=== PATIENT | male | born 1990 | race Caucasian/White ===

== ENCOUNTER 2018-08-03 15:39 | Emergency (ER) | payer MEDICARE, MEDICAID ==
[2018-08-03] MEDS ORDERED: Sodium Chloride 0.9% 1,000 ML IV ONE (16:14)
[2018-08-03] MEDS ORDERED: HYDROmorphone 1 MG/ML Syringe IVPUSH ONE (16:14)
[2018-08-03] MEDS ORDERED: Ondansetron 4 MG/2 ML SDV IV ONE (16:14)
[2018-08-03] MEDS ORDERED: Sodium Chloride 0.9% 10 ML Syringe FLUSH PRN (16:14)
[2018-08-03] MEDS ORDERED: Iopamidol 612 MG/ML 100 ML Bottle IVPUSH ONE (16:17)
[2018-08-03 16:53] LABS: ANION GAP 13.7; CHLORIDE,CL 103 mmol/L (101-111); SODIUM,NA 138 mmol/L (135-145)
[2018-08-03] MEDS ORDERED: Dicyclomine 10 MG Cap PO ONE (17:48)
--- NOTE | 2018-08-03 17:50 | EDM.PDOC ---
"Scribed by Rashmi Villatoro 08/03/18 [id number] for Bar Loomis MD ED HPI GENERAL MEDICAL PROBLEM - General Chief Complaint: Abdominal Pain Stated Complaint: ABDOMINAL PAIN Time Seen by Provider: 08/03/18 16:07 Source of Information: Reports: Patient, RN, RN Notes Reviewed History Limitations: Reports: No Limitations - History of Present Illness INITIAL COMMENTS - FREE TEXT/NARRATIVE: Patient presents to ER by POV with complaint of onset of right lower quadrant this morning. He did have a runny bowel movement last night. He admits to chills and mild nausea. Denies fever, vomiting or radiating pain. HE denies any urinary symptoms. He believes the loose stool yesterday was due to dairy products because he is lactose intolerant. He has not had a bowel movement today. Onset: Today Duration: Getting Worse Location: Reports: Abdomen Quality: Reports: Ache Severity: Severe Improves with: Reports: None Worsens with: Reports: None Associated Symptoms: Reports: No Other Symptoms Right Lower Abdomen Pain Score (Numeric/FACES): 10 - Related Data Allergies Allergy/AdvReac Type Severity Reaction Status Date / Time No Known Allergies Allergy Verified 08/03/18 16:03 Home Meds: Home Meds Albuterol Sulfate [Proair Hfa] 2 puff IH Q4HR PRN 08/03/18 [History] Melatonin 10 mg PO BEDTIME 08/03/18 [History] Omeprazole 20 mg PO DAILY 08/03/18 [History] Tiotropium [Spiriva HandiHaler] 18 mcg INH DAILY 08/03/18 [History] Past Medical History Gastrointestinal History: Reports: Other (See Below) (lactose intolerant) Social & Family History - Family History Family Medical History: Noncontributory - Living Situation & Occupation Living situation: Reports: with Family Occupation: Employed ED ROS GENERAL - Review of Systems Review Of Systems: ROS reveals no pertinent complaints other than HPI. ED EXAM, GI/ABD - Physical Exam Exam: See Below Exam Limited By: No Limitations General Appearance: Alert, WD/WN, No Apparent Distress Eyes: Bilateral: Normal Appearance Ears: Normal External Exam, Normal Canal, Hearing Grossly Normal, Normal TMs Nose: Normal Inspection, Normal Mucosa, No Blood Throat/Mouth: Normal Inspection, Normal Lips, Normal Teeth, Normal Gums, Normal Oropharynx, Normal Voice, No Airway Compromise Head: Atraumatic, Normocephalic Neck: Normal Inspection, Supple, Non-Tender, Full Range of Motion Respiratory/Chest: No Respiratory Distress, Lungs Clear, Normal Breath Sounds, No Accessory Muscle Use, Chest Non-Tender Cardiovascular: Normal Peripheral Pulses, Regular Rate, Rhythm, No Edema, No Gallop, No JVD, No Murmur, No Rub GI/Abdominal Exam: Normal Bowel Sounds, Soft, No Organomegaly, No Distention, No Abnormal Bruit, Rebound (right lower quadrant), Tender (ROQ). No: Guarding, Rigid (Male) Exam: Deferred Rectal (Males) Exam: Deferred Back Exam: Normal Inspection, Full Range of Motion, NT Extremities: Normal Inspection, Normal Range of Motion, Non-Tender, Normal Capillary Refill, No Pedal Edema Neurological: Alert, Oriented, CN II-XII Intact, Normal Cognition, Normal Gait, Normal Reflexes, No Motor/Sensory Deficits Psychiatric: Normal Affect, Normal Mood Skin Exam: Warm, Dry, Intact, Normal Color, No Rash Course - Vital Signs Last Recorded V/S: Last Vital Signs Temp 37.1 C 08/03/18 16:09 Pulse 91 08/03/18 16:09 Resp 20 08/03/18 16:09 BP 152/91 H 08/03/18 16:09 Pulse Ox 99 08/03/18 16:09 - Orders/Labs/Meds Orders: Active Orders 24 hr Category Date Time Status Peripheral IV Care [RC] . DIRECTED Care 08/03/18 16:15 Active Abdomen Pelvis w Cont [CT] Stat Exams 08/03/18 16:17 Taken Dicyclomine [Bentyl] Med 08/03/18 17:48 Once 20 mg PO ONETIME ONE Sodium Chloride 0.9% [Saline Flush] Med 08/03/18 16:14 Active 10 ml FLUSH ASDIRECTED PRN Peripheral IV Insertion Adult [OM.PC] Stat Oth 08/03/18 16:14 Ordered Medication Orders Sodium Chloride (Saline Flush) 10 ml FLUSH ASDIRECTED PRN PRN Reason: Keep Vein Open Last Admin: 08/03/18 16:25 Dose: 10 ml Labs: Laboratory Tests 08/03/18 08/03/18 08/03/18 Range/Units 16:24 16:24 17:08 WBC 5.1 (5.0-10.0) 10^3/uL RBC 5.25 (4.6-6.2) 10^6/uL Hgb 14.7 (14.0-18.0) g/dL Hct 42.9 (40.0-54.0) % MCV 81.7 (80-100) fL MCH 28.0 (27.0-34.0) pg MCHC 34.3 (33.0-35.0) g/dL Plt Count 185 (150-450) 10^3/uL Neut % (Auto) 54.1 (42.2-75.2) % Lymph % (Auto) 31.4 (20.5-50.1) % [place] % (Auto) 10.8 H (2-8) % Eos % (Auto) 3.3 H (1.0-3.0) % Baso % (Auto) 0.4 (0.0-1.0) % Sodium 138 (135-145) mmol/L Potassium 3.7 (3.6-5.0) mmol/L Chloride 103 (101-111) mmol/L Carbon Dioxide 25.0 (21.0-31.0) mmol/L Anion Gap 13.7 BUN 12 (7-18) mg/dL Creatinine 1.0 (0.6-1.3) mg/dL Est Cr Clr Drug Dosing 116.09 mL/min Estimated GFR (MDRD) > 60 BUN/Creatinine Ratio 12.00 Glucose 105 (74-105) mg/dL Calcium 9.2 (8.4-10.2) mg/dl Total Bilirubin 1.0 (0.2-1.0) mg/dL AST 34 (10-42) IU/L ALT 41 (10-60) IU/L Alkaline Phosphatase 51 (42-121) IU/L Total Protein 7.8 (6.7-8.2) g/dl Albumin 4.7 (3.2-5.5) g/dl Globulin 3.1 Albumin/Globulin Ratio 1.52 Amylase 58 (28-100) U/L Lipase 31 (22-51) U/L Urine Color Yellow (YELLOW) Urine Appearance Cloudy (CLEAR) Urine pH 8.5 (5.0-9.0) Ur Specific [place] 1.015 (1.005-1.030) Urine Protein Negative (NEGATIVE) Urine Glucose (UA) Negative (NEGATIVE) Urine Ketones Negative (NEGATIVE) Urine Occult Blood Negative (NEGATIVE) Urine Nitrite Negative (NEGATIVE) Urine Bilirubin Negative (NEGATIVE) Urine Urobilinogen 1.0 (0.2-1.0) mg/dL Ur Leukocyte Esterase Negative (NEGATIVE) Meds: Medications Generic Name Dose Route Start Last Admin Trade Name Tatum PRN Reason Stop Dose Admin Sodium Chloride 10 ml 08/03/18 16:14 08/03/18 16:25 Saline Flush FLUSH 10 ml ASDIRECTED PRN Administration Keep Vein Open Discontinued Medications Generic Name Dose Route Start Last Admin Trade Name Tatum PRN Reason Stop Dose Admin Hydromorphone HCl 0.5 mg 08/03/18 16:14 08/03/18 16:22 Dilaudid IVPUSH 08/03/18 16:15 0.5 mg ONETIME ONE Administration Sodium Chloride 1,000 mls @ 999 mls/hr 08/03/18 16:14 08/03/18 16:25 Normal Saline IV 08/03/18 17:14 999 mls/hr .BOLUS ONE Administration Iopamidol 100 ml 08/03/18 16:17 08/03/18 16:38 Isovue-300 (61%) IVPUSH 08/03/18 16:18 100 ml ONETIME ONE Administration Ondansetron HCl 4 mg 08/03/18 16:14 08/03/18 16:22 Zofran IV 08/03/18 16:15 4 mg ONETIME ONE Administration - Radiology Interpretation Free Text/Narrative:: [facility] Final Radiology Report Call: [phone] assistance Online chat: [email or web address] Name: ONEL CALDERON Age: 28Years M Date: 08/03/2018 SSN: -- : [id number] Study: CT ABDOMEN/PELVIS W Requesting Physician: BAR LOOMIS Images: [id number] Addl Studies: Provided Clinical History: Contrast: With Contrast Medium: [id number] Contrast Amount: 100 mL Contrast Method: lac Page 1 of 2 EXAM: CT Abdomen and Pelvis With Contrast EXAM DATE/TIME: 08/03/2018 4:50 PM CLINICAL HISTORY: 28 years old, male; Signs and symptoms; Other: Rlq pain TECHNIQUE: Axial computed tomography images of the abdomen and pelvis with intravenous contrast. All CT scans at this facility use at least one of these dose optimization techniques: automated exposure control; mA and/or kV adjustment per patient size (includes targeted exams where dose is matched to clinical indication); or iterative reconstruction. Coronal and sagittal reformatted images were created and reviewed. CONTRAST: 100 ml of [id number] administered intravenously. COMPARISON: No relevant prior studies available. FINDINGS: Lower thorax: No acute findings. ABDOMEN: Liver: Normal. No mass. Gallbladder and bile ducts: Normal. No calcified stones. No ductal dilation. Pancreas: Normal. No ductal dilation. Spleen: Normal. No splenomegaly. ONEL CALDERON | Final Radiology Report CONFIDENTIALITY STATEMENT This report is intended only for use by the referring physician, and only in accordance with law. If you received this in error, call [phone]. Page 2 of 2 Adrenals: Normal. No mass. Kidneys and ureters: Right renal 1.9 cm cyst. Right intrarenal calculus without hydronephrosis. Left renal partially exophytic 7 mm cyst. Stomach and bowel: Normal. No obstruction. No mucosal thickening. Appendix: A normal appendix is identified. PELVIS: Bladder: Unremarkable as visualized. Reproductive: Unremarkable as visualized. ABDOMEN and PELVIS: Intraperitoneal space: Normal. No free air. No significant fluid collection. Bones/joints: No acute fracture. No dislocation. Soft tissues: Unremarkable. Vasculature: Normal. No abdominal aortic aneurysm. Lymph nodes: Normal. No enlarged lymph nodes. IMPRESSION: No evidence of acute abdominopelvic pathology. Right intrarenal calculus without hydronephrosis. Thank you for allowing us to participate in the care of your patient. Dictated and Authenticated by: Alexander Starkey MD 08/03/2018 5:23 PM Central Time ([place] & [place]) Departure - Departure Time of Disposition: 17:48 Disposition: Home, Self-Care 01 Condition: Good Clinical Impression: Colitis Abdominal pain Qualifiers: Abdominal location: right lower quadrant Qualified Code(s): R10.31 - Right lower quadrant pain - Discharge Information *PRESCRIPTION DRUG MONITORING PROGRAM REVIEWED*: Not Applicable *COPY OF PRESCRIPTION DRUG MONITORING REPORT IN PATIENT ERIKA: Not Applicable Instructions: Colitis, Abdominal Pain, Adult Forms: ED Department Discharge Additional Instructions: Rx: Dicyclomine 20mg *Do not drive while under the influence of this medication. [place] diet. Follow up in clinic if not improving in 2 to 3 days. - My Orders Last 24 Hours: My Active Orders 08/03/18 16:14 Sodium Chloride 0.9% [Saline Flush] 10 ml FLUSH ASDIRECTED PRN Peripheral IV Insertion Adult [OM.PC] Stat 08/03/18 16:15 Peripheral IV Care [RC] . DIRECTED 08/03/18 16:17 Abdomen Pelvis w Cont [CT] Stat 08/03/18 17:48 Dicyclomine [Bentyl] 20 mg PO ONETIME ONE - Assessment/Plan Last 24 Hours: My Active Orders 08/03/18 16:14 Sodium Chloride 0.9% [Saline Flush] 10 ml FLUSH ASDIRECTED PRN Peripheral IV Insertion Adult [OM.PC] Stat 08/03/18 16:15 Peripheral IV Care [RC] . DIRECTED 08/03/18 16:17 Abdomen Pelvis w Cont [CT] Stat 08/03/18 17:48 Dicyclomine [Bentyl] 20 mg PO ONETIME ONE I have read and agree with the documentation that has been completed regarding this visit. By signing this record, I attest that the documentation was completed in my physical presence and is an accurate record of the encounter."
== END 2018-08-03 18:03 | disposition home or self-care (01) ==
LOC: DL.ED 15:39
DX: K52.9 Noninfective gastroenteritis and colitis, unspecified (principal); N20.0 Calculus of kidney
CPT/HCPCS: 36415; 74177; 80053; 81003; 82150; 83690; 85025; 96361; 96374; 96375; 99284; A9270; J1170; J2405; J7030; Q9967

== ENCOUNTER 2018-09-22 00:40 | Emergency (ER) | payer MEDICARE, MEDICAID ==
[2018-09-22] MEDS ORDERED: GI Cocktail Oral Solution 30 ML PO ONE (01:03)
--- NOTE | 2018-09-22 01:04 | EDM.PDOC ---
ED HPI GENERAL MEDICAL PROBLEM - General Chief Complaint: Chest Pain Stated Complaint: SEVERE CHEST PAIN [id number] Time Seen by Provider: 09/22/18 01:03 Source of Information: Reports: Patient History Limitations: Reports: No Limitations - History of Present Illness INITIAL COMMENTS - FREE TEXT/NARRATIVE: c/o heartburn pain takes omeprazole + another new Rx but can't recall and is out of. ate double cheese with barron burger tonight and nfelt worse like hard to breath since he also has asthma. - Related Data Allergies Allergy/AdvReac Type Severity Reaction Status Date / Time No Known Allergies Allergy Verified 08/03/18 16:03 Home Meds: Home Meds Albuterol Sulfate [Proair Hfa] 2 puff IH Q4HR PRN 08/03/18 [History] Melatonin 10 mg PO BEDTIME 08/03/18 [History] Omeprazole 20 mg PO DAILY 08/03/18 [History] Tiotropium [Spiriva HandiHaler] 18 mcg INH DAILY 08/03/18 [History] Past Medical History - Past Health History Medical/Surgical History: Denies Medical/Surgical History Gastrointestinal History: Reports: Other (See Below) (lactose intolerant) Other Gastrointestinal History: Lactose intolerance Musculoskeletal History: Reports: Other (See Below) Other Musculoskeletal History: Had a staph infection to left heal Endocrine/Metabolic History: Reports: Other (See Below) Other Endocrine/Metabolic History: Patient states is "Pre-diabetic" - Past Surgical History HEENT Surgical History: Reports: LASIK Male Surgical History: Reports: Vasectomy Social & Family History - Family History Family Medical History: Noncontributory - Caffeine Use Caffeine Use: Reports: None - Living Situation & Occupation Living situation: Reports: with Family Occupation: Employed ED ROS GENERAL - Review of Systems Review Of Systems: ROS reveals no pertinent complaints other than HPI. ED EXAM, GENERAL - Physical Exam Exam: See Below Exam Limited By: No Limitations General Appearance: Alert, WD/WN, Anxious, Mild Distress, Other (discomfort) Ears: Hearing Grossly Normal Throat/Mouth: Normal Voice, No Airway Compromise Head: Atraumatic Neck: Non-Tender, Full Range of Motion Respiratory/Chest: No Respiratory Distress Cardiovascular: Regular Rate, Rhythm GI/Abdominal: Soft, Non-Tender Neurological: Alert, Oriented, Normal Cognition, Normal Gait, No Motor/Sensory Deficits Psychiatric: Anxious Skin Exam: Warm, Dry, Normal Color Lymphatic: No Adenopathy Course - Orders/Labs/Meds Orders: Active Orders 24 hr Category Date Time Status EKG 12 Lead [EKG Documentation Completion] [RC] STAT Care 09/22/18 00:43 Active Chest 1V Frontal [CR] Urgent Exams 09/22/18 00:43 Taken Labs: Laboratory Tests 09/22/18 09/22/18 Range/Units 00:55 00:55 WBC 6.0 (5.0-10.0) 10^3/uL RBC 5.00 (4.6-6.2) 10^6/uL Hgb 13.9 L (14.0-18.0) g/dL Hct 40.9 (40.0-54.0) % MCV 81.8 (80-100) fL MCH 27.8 (27.0-34.0) pg MCHC 34.0 (33.0-35.0) g/dL Plt Count 180 (150-450) 10^3/uL Neut % (Auto) 49.2 (42.2-75.2) % Lymph % (Auto) 37.3 (20.5-50.1) % [place] % (Auto) 10.0 H (2-8) % Eos % (Auto) 3.0 (1.0-3.0) % Baso % (Auto) 0.5 (0.0-1.0) % Sodium 139 (135-145) mmol/L Potassium 3.8 (3.6-5.0) mmol/L Chloride 104 (101-111) mmol/L Carbon Dioxide 25.0 (21.0-31.0) mmol/L Anion Gap 13.8 BUN 18 (7-18) mg/dL Creatinine 1.0 (0.6-1.3) mg/dL Est Cr Clr Drug Dosing TNP Estimated GFR (MDRD) > 60 BUN/Creatinine Ratio 18.00 Glucose 103 (74-105) mg/dL Calcium 9.3 (8.4-10.2) mg/dl Total Bilirubin 0.7 (0.2-1.0) mg/dL AST 28 (10-42) IU/L ALT 33 (10-60) IU/L Alkaline Phosphatase 52 (42-121) IU/L Troponin I < 0.02 (0.00-0.02) ng/ml Total Protein 7.5 (6.7-8.2) g/dl Albumin 4.5 (3.2-5.5) g/dl Globulin 3.0 Albumin/Globulin Ratio 1.50 Meds: Medications Discontinued Medications Generic Name Dose Route Start Last Admin Trade Name Tatum PRN Reason Stop Dose Admin Al Hydroxide/Mg Hydroxide 30 ml 09/22/18 01:03 09/22/18 01:34 Gi Cocktail PO 09/22/18 01:04 30 ml ONETIME ONE Administration - Re-Assessments/Exams Free Text/Narrative Re-Assessment/Exam: 09/22/18 01:41 results discussed wit pt who is better but not 100% yet. Departure - Departure Time of Disposition: 01:42 Disposition: Home, Self-Care 01 Condition: Good Clinical Impression: Gastroesophageal reflux disease Qualifiers: Esophagitis presence: with esophagitis Qualified Code(s): K21.0 - Gastro- esophageal reflux disease with esophagitis Instructions: Food Choices for Gastroesophageal Reflux Disease, Adult Forms: ED Department Discharge Additional Instructions: 1) avoid spicy and fatty foods 2) make sure to refill meds tomorrow 3) recheck as needed - My Orders Last 24 Hours: My Active Orders 09/22/18 00:43 EKG 12 Lead [EKG Documentation Completion] [RC] STAT Chest 1V Frontal [CR] Urgent - Assessment/Plan Last 24 Hours: My Active Orders 09/22/18 00:43 EKG 12 Lead [EKG Documentation Completion] [RC] STAT Chest 1V Frontal [CR] Urgent
[2018-09-22 01:23] LABS: ANION GAP 13.8; CHLORIDE,CL 104 mmol/L (101-111); SODIUM,NA 139 mmol/L (135-145)
[2018-09-22] MEDS ORDERED: Pantoprazole 40 MG Tab.CR PO ONE (01:41)
== END 2018-09-22 01:59 | disposition home or self-care (01) ==
LOC: DL.ED 00:40
DX: K21.0 Gastro-esophageal reflux disease with esophagitis (principal); Z79.899 Other long term (current) drug therapy
CPT/HCPCS: 36415; 71045; 80053; 84484; 85025; 93005; 99285; A9270

== ENCOUNTER 2018-11-24 05:25 | Emergency (ER) | payer MEDICARE, MEDICAID ==
--- NOTE | 2018-11-24 05:42 | EDM.PDOC ---
ED HPI GENERAL MEDICAL PROBLEM - General Chief Complaint: ENT Problem Stated Complaint: SICK AND TEMPERATURE [id number] Time Seen by Provider: 11/24/18 05:41 Source of Information: Reports: Patient History Limitations: Reports: No Limitations - History of Present Illness INITIAL COMMENTS - FREE TEXT/NARRATIVE: sore throat and fever since yesterday, worse tonight Throat Pain Score (Numeric/FACES): 10 - Related Data Allergies Allergy/AdvReac Type Severity Reaction Status Date / Time No Known Allergies Allergy Verified 08/03/18 16:03 Home Meds: Home Meds Albuterol Sulfate [Proair Hfa] 2 puff IH Q4HR PRN 08/03/18 [History] Melatonin 10 mg PO BEDTIME 08/03/18 [History] Omeprazole 20 mg PO DAILY 08/03/18 [History] Tiotropium [Spiriva HandiHaler] 18 mcg INH DAILY 08/03/18 [History] Past Medical History - Past Health History Medical/Surgical History: Denies Medical/Surgical History Cardiovascular History: Reports: None Respiratory History: Reports: Asthma Gastrointestinal History: Reports: GERD, Other (See Below) Other Gastrointestinal History: Lactose intolerance Musculoskeletal History: Reports: Other (See Below) Other Musculoskeletal History: Had a staph infection to left heal Neurological History: Reports: None Psychiatric History: Reports: None Endocrine/Metabolic History: Reports: Other (See Below) Other Endocrine/Metabolic History: Patient states is "Pre-diabetic" Hematologic History: Reports: None Immunologic History: Reports: None Oncologic (Cancer) History: Reports: None Dermatologic History: Reports: None - Infectious Disease History Infectious Disease History: Reports: None - Past Surgical History Head Surgeries/Procedures: Reports: None HEENT Surgical History: Reports: LASIK Male Surgical History: Reports: Vasectomy Musculoskeletal Surgical History: Reports: Other (See Below) Other Musculoskeletal Surgeries/Procedures:: left hand pointer finger reattached Social & Family History - Family History Family Medical History: Noncontributory - Tobacco Use Smoking Status *Q: Never Smoker Second Hand Smoke Exposure: No - Caffeine Use Caffeine Use: Reports: Coffee - Recreational Drug Use Recreational Drug Use: No - Living Situation & Occupation Living situation: Reports: with Family Occupation: Employed ED ROS ENT - Review of Systems Review Of Systems: ROS reveals no pertinent complaints other than HPI. ED EXAM, ENT - Physical Exam Exam: See Below Exam Limited By: No Limitations General Appearance: Alert, WD/WN, Mild Distress, Other (discomfort) Ears: Hearing Grossly Normal Mouth/Throat: Pharyngeal Erythema, Tonsillar Erythema, Tonsillar Swelling Head: Atraumatic Neck: Non-Tender, Full Range of Motion Respiratory/Chest: No Respiratory Distress Cardiovascular: Regular Rate, Rhythm GI/Abdominal: Soft, Non-Tender Neurological: Alert, Oriented, Normal Cognition, Normal Gait, No Motor/Sensory Deficits Psychiatric: Flat Affect Skin: Warm, Dry, Normal Color Lymphatic: No Adenopathy Course - Vital Signs Last Recorded V/S: Last Vital Signs Temp 37.2 C 11/24/18 05:30 Pulse 100 11/24/18 05:30 Resp 18 11/24/18 05:30 BP 146/85 H 11/24/18 05:30 Pulse Ox 99 11/24/18 05:30 - Orders/Labs/Meds Meds: Medications Discontinued Medications Generic Name Dose Route Start Last Admin Trade Name Freq PRN Reason Stop Dose Admin Penicillin G Procaine/Benzathine 1.2 millunits 11/24/18 06:00 Bicillin C-R 600/600 IM 11/24/18 06:01 ONETIME ONE - Re-Assessments/Exams Free Text/Narrative Re-Assessment/Exam: 11/24/18 06:02 results discussed with pt Departure - Departure Time of Disposition: 06:02 Disposition: Home, Self-Care 01 Condition: Good Clinical Impression: Streptococcal tonsillopharyngitis - Discharge Information Instructions: Strep Throat, [id number] Forms: ED Department Discharge Additional Instructions: 1) avoid solid foods next 3 to 4 days 2) take tylenol or motrin for fever 3) follow up at clinic rx given; el-francisca
[2018-11-24] MEDS ORDERED: Penicillin G Benzathine/Procaine 600-600 1.2 Millunits/2 ML Syringe IM ONE (06:00)
== END 2018-11-24 06:18 | disposition home or self-care (01) ==
LOC: DL.ED 05:25
DX: J03.00 Acute streptococcal tonsillitis, unspecified (principal); K21.9 Gastro-esophageal reflux disease without esophagitis; Z79.899 Other long term (current) drug therapy
CPT/HCPCS: 87430; 96372; 99283; J0558

== ENCOUNTER 2019-02-28 22:53 | Emergency (ER) | payer MEDICARE, MEDICAID ==
[2019-02-28] MEDS ORDERED: Ketorolac 30 MG/ML SDV IM ONE (23:24)
--- NOTE | 2019-02-28 23:31 | EDM.PDOC ---
ED HPI GENERAL MEDICAL PROBLEM - General Chief Complaint: General Stated Complaint: IN PAIN, BONE SPURS? Time Seen by Provider: 02/28/19 23:20 Source of Information: Reports: Patient History Limitations: Reports: No Limitations - History of Present Illness INITIAL COMMENTS - FREE TEXT/NARRATIVE: This 28 yo male patient reports to the ED with increased pain in his left heel. The patient reports he has bone spurs and an appointment with podiatry on , but has had increased pain. The patient was seen in the clinic in the past week and advised to take Tylenol and ibuprofen. The patient reports he took Tylenol today, but has not take any ibuprofen. Onset: Gradual Duration: Day(s):, Getting Worse Location: Reports: Lower Extremity, Left Quality: Reports: Ache, Throbbing Severity: Moderate Improves with: Reports: Rest Worsens with: Reports: Movement Context: Reports: Other Associated Symptoms: Reports: No Other Symptoms - Related Data Allergies Allergy/AdvReac Type Severity Reaction Status Date / Time No Known Allergies Allergy Verified 02/28/19 22:59 Home Meds: Home Meds Albuterol Sulfate [Proair Hfa] 2 puff IH Q4HR PRN 08/03/18 [History] Melatonin 10 mg PO BEDTIME 08/03/18 [History] Omeprazole 20 mg PO DAILY 08/03/18 [History] Tiotropium [Spiriva HandiHaler] 18 mcg INH DAILY 08/03/18 [History] Past Medical History - Past Health History Medical/Surgical History: Denies Medical/Surgical History Cardiovascular History: Reports: None Respiratory History: Reports: Asthma Gastrointestinal History: Reports: GERD, Other (See Below) Other Gastrointestinal History: Lactose intolerance Musculoskeletal History: Reports: Other (See Below) Other Musculoskeletal History: Had a staph infection to left heal Neurological History: Reports: None Psychiatric History: Reports: None Endocrine/Metabolic History: Reports: Other (See Below) Other Endocrine/Metabolic History: Patient states is "Pre-diabetic" Hematologic History: Reports: None Immunologic History: Reports: None Oncologic (Cancer) History: Reports: None Dermatologic History: Reports: None - Infectious Disease History Infectious Disease History: Reports: None - Past Surgical History Head Surgeries/Procedures: Reports: None HEENT Surgical History: Reports: LASIK Male Surgical History: Reports: Vasectomy Musculoskeletal Surgical History: Reports: Other (See Below) Other Musculoskeletal Surgeries/Procedures:: left hand pointer finger reattached Social & Family History - Family History Family Medical History: Noncontributory - Tobacco Use Smoking Status *Q: Never Smoker Second Hand Smoke Exposure: No - Caffeine Use Caffeine Use: Reports: Soda - Recreational Drug Use Recreational Drug Use: No - Living Situation & Occupation Living situation: Reports: with Family Occupation: Employed ED ROS GENERAL - Review of Systems Review Of Systems: ROS reveals no pertinent complaints other than HPI. ED EXAM, GENERAL - Physical Exam Exam: See Below Exam Limited By: No Limitations General Appearance: Alert, WD/WN, Mild Distress Eye Exam: Bilateral Eye: EOMI, Normal Inspection, PERRL Ears: Normal External Exam, Normal Canal, Hearing Grossly Normal, Normal TMs Nose: Normal Inspection, Normal Mucosa, No Blood Throat/Mouth: Normal Inspection, Normal Lips, Normal Teeth, Normal Gums, Normal Oropharynx, Normal Voice, No Airway Compromise Head: Atraumatic, Normocephalic Neck: Normal Inspection, Supple, Non-Tender, Full Range of Motion Respiratory/Chest: No Respiratory Distress, Lungs Clear, Normal Breath Sounds, No Accessory Muscle Use, Chest Non-Tender Cardiovascular: Normal Peripheral Pulses, Regular Rate, Rhythm, No Edema, No Gallop, No JVD, No Murmur, No Rub GI/Abdominal: Normal Bowel Sounds, Soft, Non-Tender, No Organomegaly, No Distention, No Abnormal Bruit, No Mass (Male) Exam: Deferred Rectal (Males) Exam: Deferred Back Exam: Normal Inspection, Full Range of Motion, NT Extremities: Normal Range of Motion, No Pedal Edema, Normal Capillary Refill, Leg Pain (left heel pain with pressure) Neurological: Alert, Oriented, CN II-XII Intact Psychiatric: Normal Affect, Normal Mood Skin Exam: Warm, Dry, Intact, Normal Color, No Rash Lymphatic: No Adenopathy Course - Vital Signs Last Recorded V/S: Last Vital Signs Temp 36.6 C 02/28/19 23:00 Pulse 96 02/28/19 23:00 Resp 18 02/28/19 23:00 BP 168/96 H 02/28/19 23:00 Pulse Ox 100 02/28/19 23:00 - Orders/Labs/Meds Orders: Active Orders 24 hr Category Date Time Status Ketorolac [Toradol] Med 02/28/19 23:24 Once 30 mg IM ONETIME ONE Departure - Departure Time of Disposition: 23:28 Disposition: Home, Self-Care 01 Condition: Fair Clinical Impression: Inflammatory pain of left heel - Discharge Information *PRESCRIPTION DRUG MONITORING PROGRAM REVIEWED*: Not Applicable *COPY OF PRESCRIPTION DRUG MONITORING REPORT IN PATIENT ERIKA: Not Applicable Instructions: Heel Spur Care Plan Goals: The patient was advised of the examination results during the visit. The patient was given an injection of Toradol while in the ED. The patient was discharged with a script for Toradol (10 mg) #20 to take 1 by mouth every 6 hours. The patient should follow-up with his primary care facility for continued evaluation and management. The patient was also encouraged to ice the area often. If the patient has any additional symptoms or concerns, the patient should either return to the emergency department or visit his primary care facility. - My Orders Last 24 Hours: My Active Orders 02/28/19 23:24 Ketorolac [Toradol] 30 mg IM ONETIME ONE - Assessment/Plan Last 24 Hours: My Active Orders 02/28/19 23:24 Ketorolac [Toradol] 30 mg IM ONETIME ONE
== END 2019-02-28 23:38 | disposition home or self-care (01) ==
LOC: DL.ED 22:53
DX: M79.672 Pain in left foot (principal); J45.909 Unspecified asthma, uncomplicated; K21.9 Gastro-esophageal reflux disease without esophagitis; Z79.899 Other long term (current) drug therapy
CPT/HCPCS: 96372; 99283; J1885

== ENCOUNTER 2019-03-19 07:03 | Day surgery (SDC) | payer MEDICARE, MEDICAID ==
[~2019-03-19 07:03] MED LIST: Lactated Ringers 1,000 ML IV SCH; Sodium Chloride 0.9% 10 ML Syringe FLUSH PRN
[2019-03-19] MEDS ORDERED: Bupivacaine 0.5% 30 ML SDV INJECT ONE ×4 (07:04→09:50)
[2019-03-19] MEDS ORDERED: Dexamethasone 4 MG/ML SDV IV ONE (07:04)
[2019-03-19] MEDS ORDERED: fentaNYL 100 MCG/2 ML SDV IV ONE (07:04)
[2019-03-19] MEDS ORDERED: Propofol 200 MG/20 ML SDV IV ONE (07:04)
[2019-03-19] MEDS ORDERED: Ondansetron 4 MG/2 ML SDV IV ONE (07:04)
[2019-03-19] MEDS ORDERED: Lidocaine 1% 30 ML SDV INJECT ONE ×4 (07:04→09:50)
[2019-03-19] MEDS ORDERED: Midazolam 1 MG/ML 2 ML SDV IV ONE (07:04)
[2019-03-19] MEDS ORDERED: Bupivacaine 0.5% 30 ML SDV ONE (08:03)
[2019-03-19] MEDS ORDERED: Lidocaine 1% 30 ML SDV ONE (08:03)
[2019-03-19] MEDS ORDERED: ceFAZolin 2 GM in Premix Bag 1 BAG IV ONE (09:00)
[2019-03-19] MEDS ORDERED: Acetaminophen/oxyCODONE 325-5 MG Tab PO PRN (09:58)
--- NOTE | 2019-03-19 10:01 | PCM.OPNOTE ---
- General Post-Op/Procedure Note Date of Surgery/Procedure: 03/19/19 Operative Procedure(s): left foot calcaneal exostectomy Pre Op Diagnosis: left foot calcaneus exostosis Post-Op Diagnosis: daya Anesthesia Technique: Local, MAC Primary Surgeon: Analisa Gutierrez Anesthesia Provider: Sudheer Park Pathology: left foot bone spur EBL in mLs: 10 Complications: none Condition: Good Free Text/Narrative:: Intake & Output 03/18/19 03/19/19 03/19/19 22:59 06:59 14:59 Intake Total 50 Balance 50 Pt tolerated procedure well and was transported to recovery with vascular status intact to left foot. Well padded compression dressing applied with cam boot.
--- NOTE | 2019-03-20 12:31 | OR ---
DATE: 03/19/2019 PREOPERATIVE DIAGNOSIS: Left foot calcaneal exostosis. POSTOPERATIVE DIAGNOSIS: Left foot calcaneal exostosis. PROCEDURE PERFORMED: Left foot calcaneal exostectomy. ANESTHESIA: Local MAC with preoperative local block of 10 mL of 1:1 mixture of 1% lidocaine plain and 0.5% Marcaine plain. TOURNIQUET TIME: 50 minutes, pneumatic ankle tourniquet. ESTIMATED BLOOD LOSS: Minimal. SPECIMEN REMOVED: Left foot bone spur. COMPLICATIONS: None. INDICATIONS: Parvin is a 28-year-old male who presents for left foot heel pain. This has been bothering him now to the point where he cannot even walk on the foot. He did see his primary care who got x-rays and told them he has a large bone spur underneath the heel bone. He does have history of infection in that foot when he was a child, where they had to put him in the hospital for IV antibiotics and do a surgery on that area of the foot. He has tried cushions in his shoes with no relief. He does work on hard floors all day at [employer]. X-rays reveal left foot large exostosis at the plantar medial aspect of the calcaneus. The patient voiced good understanding of the proposed procedure and possible complications and elects to have surgery at this time. DESCRIPTION OF PROCEDURE: The patient was taken to the operating room lying in a supine position. After adequate anesthesia induction as described above, the left foot was prepped and draped in the usual sterile fashion. A pneumatic ankle tourniquet was inflated to 225 mmHg. Attention was then directed to the medial aspect of the left foot calcaneal area where an approximately 4 cm linear incision was made just dorsal to the plantar fat pad of the calcaneus. This was right overlying the bony prominence. Sharp and blunt dissection was performed down to the level of the large bony exostosis. A sagittal saw was used to make a bone cut through the bone spur, a curette was also used to help free the area and the bone spur was completely removed, this was sent to pathology. A bone rasp was used to smoothen all rough edges. Fluoroscopy was used to ensure all bone spur was removed. This was also palpated, and there were no longer any sharp bony prominences in the area. The area was then irrigated with copious amounts of sterile saline. Deep closure was completed with 3-0 Vicryl. Skin closure was completed with 4-0 nylon. The area was dressed with Xeroform to the incision site, fluffs, Webril, and an Adi wrap. He was placed non- weightbearing. The patient tolerated the procedure well and left the operating room for recovery with vascular status intact to the left foot as noted by immediate hyperemia to all digits upon deflation of the ankle tourniquet. The patient was then discharged home once he met hospital discharge requirements. [facility] /[id number]
== END 2019-03-19 12:45 | disposition home or self-care (01) ==
LOC: DL.SDS 07:03
PROVIDERS: ATTEND Podiatrist
DX: M89.8X7 Other specified disorders of bone, ankle and foot (principal); K21.9 Gastro-esophageal reflux disease without esophagitis; J45.909 Unspecified asthma, uncomplicated; F41.9 Anxiety disorder, unspecified; F32.9 Major depressive disorder, single episode, unspecified; Z91.09 Other allergy status, other than to drugs and biological substances; Z79.899 Other long term (current) drug therapy
CPT/HCPCS: 01480; 28120; 82962; A9270; J0690; J1100; J2001; J2250; J2405; J2704; J3010; J3490; J7120

== ENCOUNTER 2019-03-22 16:34 | Emergency (ER) | payer MEDICARE, MEDICAID ==
--- NOTE | 2019-03-22 18:35 | EDM.PDOC ---
ED HPI GENERAL MEDICAL PROBLEM - General Chief Complaint: Lower Extremity Injury/Pain Stated Complaint: DIZZY SPELLS Time Seen by Provider: 03/22/19 18:00 Source of Information: Reports: Patient, RN, RN Notes Reviewed History Limitations: Reports: No Limitations - History of Present Illness INITIAL COMMENTS - FREE TEXT/NARRATIVE: Patient is a 28-year-old male who has had 2 days of dizziness and on oxycodone. He took one this a.m. for left lateral ankle pain. He fell off crutches with no injury. No numbness of left foot. He has had increased pain in to it and has not taken any pain med cine this a.m. He has history of staph infection with last surgery on that same heel. Onset: Today Duration: Getting Worse Location: Reports: Lower Extremity, Left Quality: Reports: Ache Severity: Moderate Improves with: Reports: None Worsens with: Reports: None Associated Symptoms: Reports: No Other Symptoms Left Lower Ankle Pain Score (Numeric/FACES): 10 - Related Data Allergies Allergy/AdvReac Type Severity Reaction Status Date / Time environmental Allergy Hives Uncoded 03/19/19 07:11 Home Meds: Home Meds Albuterol Sulfate [Proair Hfa] 2 puff IH Q4HR PRN 08/03/18 [History] Melatonin 10 mg PO BEDTIME PRN 08/03/18 [History] Omeprazole 20 mg PO DAILY 08/03/18 [History] Tiotropium [Spiriva HandiHaler] 18 mcg INH DAILY 08/03/18 [History] Azelastine HCl [Azelastine] 1 drop EYEBOTH BID 03/17/19 [History] Cetirizine [ZyrTEC] 10 mg PO DAILY 03/17/19 [History] DULoxetine [Cymbalta] 60 mg PO DAILY 03/17/19 [History] Fluticasone/Vilanterol [Breo Ellipta 100-25 MCG Inhalation Kit] 1 puff INH DAILY 03/17/19 [History] Ranitidine [Zantac] 150 mg PO DAILY 03/17/19 [History] Past Medical History - Past Health History Medical/Surgical History: Denies Medical/Surgical History HEENT History: Reports: Impaired Vision Cardiovascular History: Reports: None Respiratory History: Reports: Asthma Gastrointestinal History: Reports: GERD, Other (See Below) Other Gastrointestinal History: Lactose intolerance Genitourinary History: Reports: None Musculoskeletal History: Reports: Other (See Below) Other Musculoskeletal History: Had a staph infection to left heal Neurological History: Reports: None Psychiatric History: Reports: None, Anxiety, Depression Endocrine/Metabolic History: Reports: Other (See Below) Other Endocrine/Metabolic History: Patient states is "Pre-diabetic" Hematologic History: Reports: None Immunologic History: Reports: None Oncologic (Cancer) History: Reports: None Dermatologic History: Reports: None - Infectious Disease History Infectious Disease History: Reports: Chicken Pox - Past Surgical History Head Surgeries/Procedures: Reports: None HEENT Surgical History: Reports: LASIK Cardiovascular Surgical History: Reports: None Respiratory Surgical History: Reports: None GI Surgical History: Reports: Colonoscopy Male Surgical History: Reports: Vasectomy Musculoskeletal Surgical History: Reports: Shoulder Surgery, Other (See Below) Other Musculoskeletal Surgeries/Procedures:: left hand pointer finger reattached. Left calcaneal osteotomy Oncologic Surgical History: Reports: None Social & Family History - Family History Family Medical History: Noncontributory - Tobacco Use Smoking Status *Q: Never Smoker - Caffeine Use Caffeine Use: Reports: Soda - Recreational Drug Use Recreational Drug Use: No - Living Situation & Occupation Living situation: Reports: with Family Occupation: Employed Review of Systems - Review of Systems Review Of Systems: ROS reveals no pertinent complaints other than HPI. ED EXAM, GENERAL - Physical Exam Exam: See Below Exam Limited By: No Limitations General Appearance: Alert, WD/WN, No Apparent Distress Respiratory/Chest: No Respiratory Distress, Lungs Clear, Normal Breath Sounds, No Accessory Muscle Use, Chest Non-Tender Cardiovascular: Normal Peripheral Pulses, Regular Rate, Rhythm, No Edema, No Gallop, No JVD, No Murmur, No Rub Peripheral Pulses: 3+: Dorsalis Pedis (L), Dorsalis Pedis (R) Extremities: Other (wiggles toes on left with no red or warmth of the left toes or distal tib/fib. Removed evangelina wrap on left foot and small dry dark old red drainage approximatley 2 cm on heel. ) Neurological: Alert Psychiatric: Normal Affect, Normal Mood Skin Exam: Warm, Dry, Intact, Normal Color, No Rash Course - Vital Signs Last Recorded V/S: Last Vital Signs Temp 36.8 C 03/22/19 17:29 Pulse 97 03/22/19 17:29 Resp 16 03/22/19 17:29 BP 140/98 H 03/22/19 17:29 Pulse Ox 99 03/22/19 17:29 Departure - Departure Time of Disposition: 18:31 Disposition: Home, Self-Care 01 Condition: Good Clinical Impression: Status post osteotomy, Dizzy spells - Discharge Information *PRESCRIPTION DRUG MONITORING PROGRAM REVIEWED*: Not Applicable *COPY OF PRESCRIPTION DRUG MONITORING REPORT IN PATIENT ERIKA: Not Applicable Instructions: Dizziness, [id number] Forms: ED Department Discharge Additional Instructions: Only use 1 oxycodone at a time. Increase fluids. See your precipitator supervisor tomorrow. I do think your dizzy spells are related to your oxycodone. I would also use aspirin or ibuprofen (what ever your precipitator supervisor had instructed you to do) with 1 oxycodone.
== END 2019-03-22 18:45 | disposition home or self-care (01) ==
LOC: DL.ED 16:34
DX: R42 Dizziness and giddiness (principal); J45.909 Unspecified asthma, uncomplicated; K21.9 Gastro-esophageal reflux disease without esophagitis; F41.9 Anxiety disorder, unspecified; F32.9 Major depressive disorder, single episode, unspecified; Z98.890 Other specified postprocedural states; Z91.09 Other allergy status, other than to drugs and biological substances; Z79.899 Other long term (current) drug therapy
CPT/HCPCS: 99283

== ENCOUNTER 2019-05-31 15:26 | Emergency (ER) | payer OTHER, MEDICARE ==
--- NOTE | 2019-05-31 15:56 | EDM.PDOC ---
ED HPI GENERAL MEDICAL PROBLEM - General Chief Complaint: Wound Recheck Stated Complaint: WC LIQUOR BOTTLES CUT Time Seen by Provider: 05/31/19 15:40 Source of Information: Reports: Patient History Limitations: Reports: No Limitations - History of Present Illness INITIAL COMMENTS - FREE TEXT/NARRATIVE: This 29 yo male patient reports to the ED after having several liquor bottles dropped off a shelf on him as he was working at [employer]. The patient reports the incident happened at 1330 today. The patient has small superficial lacerations to his left hand (4th and 5th fingers) and right forearm. The patient reports he also has pain in his right knee due to one of the bottles falling on his right knee. Onset: Today Onset Date: 05/31/19 Onset Time: 13:30 Duration: Constant Location: Reports: Upper Extremity, Left, Upper Extremity, Right, Lower Extremity, Right Quality: Reports: Other Severity: Mild Improves with: Reports: None Worsens with: Reports: None Context: Reports: Other Associated Symptoms: Reports: No Other Symptoms Right Knee Pain Score (Numeric/FACES): 10 - Related Data Allergies Allergy/AdvReac Type Severity Reaction Status Date / Time environmental Allergy Hives Uncoded 05/31/19 15:37 Home Meds: Home Meds Albuterol Sulfate [Proair Hfa] 2 puff IH Q4HR PRN 08/03/18 [History] Melatonin 10 mg PO BEDTIME PRN 08/03/18 [History] Omeprazole 20 mg PO DAILY 08/03/18 [History] Tiotropium [Spiriva HandiHaler] 18 mcg INH DAILY 08/03/18 [History] Azelastine HCl [Azelastine] 1 drop EYEBOTH BID 03/17/19 [History] Cetirizine [ZyrTEC] 10 mg PO DAILY 03/17/19 [History] DULoxetine [Cymbalta] 60 mg PO DAILY 03/17/19 [History] Fluticasone/Vilanterol [Breo Ellipta 100-25 MCG Inhalation Kit] 1 puff INH DAILY 03/17/19 [History] Ranitidine [Zantac] 150 mg PO DAILY 03/17/19 [History] Past Medical History - Past Health History Medical/Surgical History: Denies Medical/Surgical History HEENT History: Reports: Impaired Vision Cardiovascular History: Reports: None Respiratory History: Reports: Asthma Gastrointestinal History: Reports: GERD, Other (See Below) Other Gastrointestinal History: Lactose intolerance Genitourinary History: Reports: None Musculoskeletal History: Reports: Other (See Below) Other Musculoskeletal History: Had a staph infection to left heal Neurological History: Reports: None Psychiatric History: Reports: None, Anxiety, Depression Endocrine/Metabolic History: Reports: Other (See Below) Other Endocrine/Metabolic History: Patient states is "Pre-diabetic" Hematologic History: Reports: None Immunologic History: Reports: None Oncologic (Cancer) History: Reports: None Dermatologic History: Reports: None - Infectious Disease History Infectious Disease History: Reports: Chicken Pox - Past Surgical History Head Surgeries/Procedures: Reports: None HEENT Surgical History: Reports: LASIK Cardiovascular Surgical History: Reports: None Respiratory Surgical History: Reports: None GI Surgical History: Reports: Colonoscopy Male Surgical History: Reports: Vasectomy Musculoskeletal Surgical History: Reports: Shoulder Surgery, Other (See Below) Other Musculoskeletal Surgeries/Procedures:: left hand pointer finger reattached. Left calcaneal osteotomy Oncologic Surgical History: Reports: None Social & Family History - Family History Family Medical History: Noncontributory - Tobacco Use Smoking Status *Q: Never Smoker Second Hand Smoke Exposure: No - Caffeine Use Caffeine Use: Reports: Soda - Recreational Drug Use Recreational Drug Use: No - Living Situation & Occupation Living situation: Reports: with Family Occupation: Employed ED ROS GENERAL - Review of Systems Review Of Systems: Comprehensive ROS is negative, except as noted in HPI. ED EXAM, SKIN/RASH Exam: See Below Exam Limited By: No Limitations General Appearance: Alert, WD/WN, Mild Distress Eye Exam: Bilateral Eye: EOMI, Normal Inspection, PERRL Ears: Normal External Exam, Normal Canal, Hearing Grossly Normal, Normal TMs Nose: Normal Inspection, Normal Mucosa, No Blood Throat/Mouth: Normal Inspection, Normal Lips, Normal Teeth, Normal Gums, Normal Oropharynx, Normal Voice, No Airway Compromise Head: Atraumatic, Normocephalic Neck: Normal Inspection, Supple, Non-Tender, Full Range of Motion Respiratory/Chest: No Respiratory Distress, Lungs Clear, Normal Breath Sounds, No Accessory Muscle Use, Chest Non-Tender Cardiovascular: Normal Peripheral Pulses, Regular Rate, Rhythm, No Edema, No Gallop, No JVD, No Murmur, No Rub GI/Abdominal: Normal Bowel Sounds, Soft, Non-Tender, No Organomegaly, No Distention, No Abnormal Bruit, No Mass (Male) Exam: Deferred Rectal (Males) Exam: Deferred Back Exam: Normal Inspection, Full Range of Motion, NT Extremities: Leg Pain (right knee (no evidence of bruise), no break in skin related to injury area) Neurological: Alert, Oriented, CN II-XII Intact, Normal Cognition, Normal Gait, Normal Reflexes, No Motor/Sensory Deficits Psychiatric: Normal Affect, Normal Mood Skin: Warm, Dry, Normal Color, No Rash, Wound/Incision (small superficial lacerations to the patient's left 4th and 5th fingers, small superficial laceration to patient's right forarm.) Location, Skin: Upper Extremity, Right, Upper Extremity, Left, Lower Extremity, Right (no evidence of injury to the patient's right knee (no contusion and no broken skin). ) Lymphatic: No Adenopathy Course - Vital Signs Last Recorded V/S: Last Vital Signs Temp 36.5 C 05/31/19 15:30 Pulse 96 05/31/19 15:30 Resp 18 05/31/19 15:30 BP 146/87 H 05/31/19 15:30 Pulse Ox 100 05/31/19 15:30 - Orders/Labs/Meds Orders: Active Orders 24 hr Category Date Time Status Vaccines to be Administered [RC] PER UNIT ROUTINE Care 05/31/19 15:47 Ordered Diphth,Pertuss(Acell),Tet Vac [Adacel] Med 05/31/19 15:47 Once 0.5 ml IM .ONCE ONE Medication Orders Diphtheria/Tetanus/Acell Pertussis (Adacel) 0.5 ml IM .ONCE ONE Stop: 05/31/19 15:48 Meds: Medications Generic Name Dose Route Start Last Admin Trade Name Freq PRN Reason Stop Dose Admin Diphtheria/Tetanus/Acell Pertussis 0.5 ml 05/31/19 15:47 Adacel IM 05/31/19 15:48 .ONCE ONE Departure - Departure Time of Disposition: 16:00 Disposition: Home, Self-Care 01 Condition: Good Clinical Impression: Superficial laceration of left hand Qualifiers: Encounter type: initial encounter Qualified Code(s): S61.412A - Laceration without foreign body of left hand, initial encounter Superficial injury of right forearm Qualifiers: Encounter type: initial encounter Qualified Code(s): S50.911A - Unspecified superficial injury of right forearm, initial encounter Right knee pain Qualifiers: Chronicity: acute Qualified Code(s): M25.561 - Pain in right knee - Discharge Information *PRESCRIPTION DRUG MONITORING PROGRAM REVIEWED*: Not Applicable *COPY OF PRESCRIPTION DRUG MONITORING REPORT IN PATIENT ERIKA: Not Applicable Care Plan Goals: The patient was advised of the examination during the visit. The patient's hand wounds were cleaned with no additional bleeding. The patient was encouraged to continue with his normal activities. If the patient has any additional symptoms or concerns, the patient should either return to the emergency department or visit his primary care facility. - My Orders Last 24 Hours: My Active Orders 05/31/19 15:47 Vaccines to be Administered [RC] PER UNIT ROUTINE Diphth,Pertuss(Acell),Tet Vac [Adacel] 0.5 ml IM .ONCE ONE - Assessment/Plan Last 24 Hours: My Active Orders 05/31/19 15:47 Vaccines to be Administered [RC] PER UNIT ROUTINE Diphth,Pertuss(Acell),Tet Vac [Adacel] 0.5 ml IM .ONCE ONE
[2019-05-31] MEDS: Diphtheria,Pertussis(Acell),Tetanus Vaccine 0.5 ML SDV IM ONE (15:59)
== END 2019-05-31 16:10 | disposition home or self-care (01) ==
LOC: DL.ED 15:26
DX: S61.215A Laceration without foreign body of left ring finger without damage to nail, initial encounter (principal); S61.217A Laceration without foreign body of left little finger without damage to nail, initial encounter; S51.811A Laceration without foreign body of right forearm, initial encounter; M25.561 Pain in right knee; Z23 Encounter for immunization; K21.9 Gastro-esophageal reflux disease without esophagitis; J45.909 Unspecified asthma, uncomplicated; F41.9 Anxiety disorder, unspecified; F32.9 Major depressive disorder, single episode, unspecified; Z79.899 Other long term (current) drug therapy; Z91.048 Other nonmedicinal substance allergy status; W20.8XXA Other cause of strike by thrown, projected or falling object, initial encounter; Y99.0 Civilian activity done for income or pay
CPT/HCPCS: 90471; 90715; 99282-25

== ENCOUNTER 2019-08-10 18:47 | Emergency (ER) | payer MEDICARE, OTHER ==
--- NOTE | 2019-08-10 19:16 | EDM.PDOC ---
ED HPI GENERAL MEDICAL PROBLEM - General Chief Complaint: General Stated Complaint: BUMP ON TESTICLE Time Seen by Provider: 08/10/19 19:04 Source of Information: Reports: Patient History Limitations: Reports: No Limitations - History of Present Illness INITIAL COMMENTS - FREE TEXT/NARRATIVE: This 29 yo male patient reports to the ED with right testicular pain and a lump. The patient reports he noticed the increased pain yesterday, but the pain increased today. The patient reports he also noticed the lump on the right lateral testicle today. The patient reports he was tested "a long time ago" for STD's, but states he has not had sexual contact with any different partners since he was tested. The patient reports increased pain with lifting and moving heavy objects. Onset Date: 08/09/19 Duration: Constant Location: Reports: Other (Right testicular pain) Quality: Reports: Ache, Dull Severity: Moderate Improves with: Reports: Rest Worsens with: Reports: Other (lifting) Context: Reports: Other Associated Symptoms: Reports: No Other Symptoms Right Scrotum Pain Score (Numeric/FACES): 10 - Related Data Allergies Allergy/AdvReac Type Severity Reaction Status Date / Time environmental Allergy Hives Uncoded 05/31/19 15:37 Home Meds: Home Meds Albuterol Sulfate [Proair Hfa] 2 puff IH Q4HR PRN 08/03/18 [History] Melatonin 10 mg PO BEDTIME PRN 08/03/18 [History] Omeprazole 20 mg PO DAILY 08/03/18 [History] Tiotropium [Spiriva HandiHaler] 18 mcg INH DAILY 08/03/18 [History] Azelastine HCl [Azelastine] 1 drop EYEBOTH BID 03/17/19 [History] Cetirizine [ZyrTEC] 10 mg PO DAILY 03/17/19 [History] DULoxetine [Cymbalta] 60 mg PO DAILY 03/17/19 [History] Fluticasone/Vilanterol [Breo Ellipta 100-25 MCG Inhalation Kit] 1 puff INH DAILY 03/17/19 [History] Ranitidine [Zantac] 150 mg PO DAILY 03/17/19 [History] Past Medical History - Past Health History Medical/Surgical History: Denies Medical/Surgical History HEENT History: Reports: Impaired Vision Cardiovascular History: Reports: None Respiratory History: Reports: Asthma Gastrointestinal History: Reports: GERD, Other (See Below) Other Gastrointestinal History: Lactose intolerance Genitourinary History: Reports: None Musculoskeletal History: Reports: Other (See Below) Other Musculoskeletal History: Had a staph infection to left heal Neurological History: Reports: None Psychiatric History: Reports: ADHD, Anxiety, Depression Endocrine/Metabolic History: Reports: Other (See Below) Other Endocrine/Metabolic History: Patient states is "Pre-diabetic" Hematologic History: Reports: None Immunologic History: Reports: None Oncologic (Cancer) History: Reports: None Dermatologic History: Reports: None - Infectious Disease History Infectious Disease History: Reports: Chicken Pox - Past Surgical History Head Surgeries/Procedures: Reports: None HEENT Surgical History: Reports: LASIK Cardiovascular Surgical History: Reports: None Respiratory Surgical History: Reports: None GI Surgical History: Reports: Colonoscopy Male Surgical History: Reports: Vasectomy Musculoskeletal Surgical History: Reports: Shoulder Surgery, Other (See Below) Other Musculoskeletal Surgeries/Procedures:: left hand pointer finger reattached. Left calcaneal osteotomy Oncologic Surgical History: Reports: None Social & Family History - Family History Family Medical History: Noncontributory - Tobacco Use Smoking Status *Q: Unknown Ever Smoked Second Hand Smoke Exposure: No - Caffeine Use Caffeine Use: Reports: None - Recreational Drug Use Recreational Drug Use: No - Living Situation & Occupation Living situation: Reports: with Family Occupation: Employed ED ROS GENERAL - Review of Systems Review Of Systems: Comprehensive ROS is negative, except as noted in HPI. ED EXAM, GENERAL - Physical Exam Exam: See Below Exam Limited By: No Limitations General Appearance: Alert, WD/WN, Mild Distress Eye Exam: Bilateral Eye: EOMI, Normal Inspection, PERRL Ears: Normal External Exam, Normal Canal, Hearing Grossly Normal, Normal TMs Nose: Normal Inspection, Normal Mucosa, No Blood Throat/Mouth: Normal Inspection, Normal Lips, Normal Teeth, Normal Gums, Normal Oropharynx, Normal Voice, No Airway Compromise Head: Atraumatic, Normocephalic Neck: Normal Inspection, Supple, Non-Tender, Full Range of Motion Respiratory/Chest: No Respiratory Distress, Lungs Clear, Normal Breath Sounds, No Accessory Muscle Use, Chest Non-Tender Cardiovascular: Normal Peripheral Pulses, Regular Rate, Rhythm, No Edema, No Gallop, No JVD, No Murmur, No Rub GI/Abdominal: Normal Bowel Sounds, Soft, Non-Tender, No Organomegaly, No Distention, No Abnormal Bruit, No Mass (Male) Exam: Testicular Tenderness (R), Other (small mass on lateral testicle , tender to palpation) Rectal (Males) Exam: Deferred Back Exam: Normal Inspection, Full Range of Motion, NT Extremities: Normal Inspection, Normal Range of Motion, Non-Tender, Normal Capillary Refill, No Pedal Edema Neurological: Alert, Oriented, CN II-XII Intact, Normal Cognition, Normal Gait, Normal Reflexes, No Motor/Sensory Deficits Psychiatric: Normal Affect, Normal Mood Skin Exam: Warm, Dry, Intact, Normal Color, No Rash Lymphatic: No Adenopathy Course - Vital Signs Last Recorded V/S: Last Vital Signs Temp 36.6 C 08/10/19 19:02 Pulse 95 08/10/19 19:02 Resp 16 08/10/19 19:02 BP 140/95 H 08/10/19 19:02 Pulse Ox 95 08/10/19 19:02 - Orders/Labs/Meds Orders: Active Orders 24 hr Category Date Time Status CHLAMYDIA AND GONORRHEA BY [facility] Urgent Lab 08/10/19 19:14 Ordered Labs: Laboratory Tests 08/10/19 08/10/19 08/10/19 Range/Units 19:15 19:15 19:19 WBC 6.6 (5.0-10.0) 10^3/uL RBC 4.69 (4.6-6.2) 10^6/uL Hgb 13.5 L (14.0-18.0) g/dL Hct 39.2 L (40.0-54.0) % MCV 83.6 (80-100) fL MCH 28.8 (27.0-34.0) pg MCHC 34.4 (33.0-35.0) g/dL Plt Count 197 (150-450) 10^3/uL Neut % (Auto) 48.6 (42.2-75.2) % Lymph % (Auto) 37.9 (20.5-50.1) % Patrick % (Auto) 8.5 H (2-8) % Eos % (Auto) 4.5 H (1.0-3.0) % Baso % (Auto) 0.5 (0.0-1.0) % Sodium 138 (135-145) mmol/L Potassium 3.7 (3.6-5.0) mmol/L Chloride 103 (101-111) mmol/L Carbon Dioxide 25.0 (21.0-31.0) mmol/L Anion Gap 13.7 BUN 17 (7-18) mg/dL Creatinine 0.9 (0.6-1.3) mg/dL Est Cr Clr Drug Dosing 127.82 mL/min Estimated GFR (MDRD) > 60 BUN/Creatinine Ratio 18.88 Glucose 120 H (74-105) mg/dL Calcium 9.2 (8.4-10.2) mg/dl Total Bilirubin 0.6 (0.2-1.0) mg/dL AST 40 (10-42) IU/L ALT 64 H (10-60) IU/L Alkaline Phosphatase 52 (42-121) IU/L Total Protein 7.2 (6.7-8.2) g/dl Albumin 4.5 (3.2-5.5) g/dl Globulin 2.7 Albumin/Globulin Ratio 1.67 Urine Color Yellow (YELLOW) Urine Appearance Slightly cloudy (CLEAR) Urine pH 7.0 (5.0-9.0) Ur Specific [place] 1.025 (1.005-1.030) Urine Protein Negative (NEGATIVE) Urine Glucose (UA) Negative (NEGATIVE) Urine Ketones Negative (NEGATIVE) Urine Occult Blood Negative (NEGATIVE) Urine Nitrite Negative (NEGATIVE) Urine Bilirubin Negative (NEGATIVE) Urine Urobilinogen 1.0 (0.2-1.0) mg/dL Ur Leukocyte Esterase Negative (NEGATIVE) Departure - Departure Time of Disposition: 21:24 Disposition: Home, Self-Care 01 Condition: Fair Clinical Impression: Hydrocele in adult, Sperm granuloma - Discharge Information *PRESCRIPTION DRUG MONITORING PROGRAM REVIEWED*: Not Applicable *COPY OF PRESCRIPTION DRUG MONITORING REPORT IN PATIENT ERIKA: Not Applicable Instructions: Hydrocele, Adult Forms: ED Department Discharge Care Plan Goals: The patient was advised of the examination, lab and ultrasound results during the visit. The patient was encouraged to practice scrotal support. If the patient has any additional symptoms or concerns, the patient should either return to the emergency department or visit his primary care facility. Sepsis Event Note - Evaluation Sepsis Screening Result: No Definite Risk - Focused Exam Vital Signs: Vital Signs Temp Pulse Resp BP Pulse Ox 08/10/19 19:02 36.6 C 95 16 140/95 H 95 Date Exam was Performed: 08/10/19 Time Exam was Performed: 21:24 - My Orders Last 24 Hours: My Active Orders 08/10/19 19:14 CHLAMYDIA AND GONORRHEA BY [facility] Urgent - Assessment/Plan Last 24 Hours: My Active Orders 08/10/19 19:14 CHLAMYDIA AND GONORRHEA BY [facility] Urgent
[2019-08-10 19:43] LABS: ANION GAP 13.7; CHLORIDE,CL 103 mmol/L (101-111); SODIUM,NA 138 mmol/L (135-145)
== END 2019-08-10 21:30 | disposition home or self-care (01) ==
LOC: DL.ED 18:47
DX: N43.3 Hydrocele, unspecified (principal); N50.89 Other specified disorders of the male genital organs; J45.909 Unspecified asthma, uncomplicated; K21.9 Gastro-esophageal reflux disease without esophagitis; F41.9 Anxiety disorder, unspecified; F32.9 Major depressive disorder, single episode, unspecified; Z98.52 Vasectomy status; Z91.048 Other nonmedicinal substance allergy status; Z79.899 Other long term (current) drug therapy
CPT/HCPCS: 36415; 76870; 80053; 81003; 85025; 87491; 87591; 99282; 99284-25

== ENCOUNTER 2020-07-18 18:31 | Emergency (ER) | payer BC, MEDICARE, OTHER ==
[2020-07-18] MEDS ORDERED: Amoxicillin 500 MG Cap PO ONE (18:32)
[2020-07-18] MEDS ORDERED: Lidocaine 2% Viscous Solution 15 ML Cup PO ONE (18:32)
[2020-07-18] MEDS ORDERED: Lidocaine 2% Viscous Solution 15 ML Cup ONE (18:56)
[2020-07-18] MEDS ORDERED: Amoxicillin 500 MG Cap ONE (18:56)
--- NOTE | 2020-07-18 18:59 | EDM.PDOC ---
ED HPI GENERAL MEDICAL PROBLEM - General Chief Complaint: ENT Problem Stated Complaint: LEFT SIDE FACE SWELLING Time Seen by Provider: 07/18/20 18:45 Source of Information: Reports: Patient, RN History Limitations: Reports: No Limitations - History of Present Illness INITIAL COMMENTS - FREE TEXT/NARRATIVE: swelling left upper cheek. Loose tooth and dental pain left first molar. No fever or chills. Dentist appointment on Saturday. Has been alternating tylenol and ibuprofen. Only taking 200mg one tablet at a time. Left Face/Facial Pain Score (Numeric/FACES): 10 - Related Data Allergies Allergy/AdvReac Type Severity Reaction Status Date / Time environmental Allergy Hives Uncoded 07/18/20 18:34 Home Meds: Home Meds Albuterol Sulfate [Proair Hfa] 2 puff IH Q4HR PRN 08/03/18 [History] Melatonin 10 mg PO BEDTIME PRN 08/03/18 [History] Omeprazole 20 mg PO DAILY 08/03/18 [History] Tiotropium [Spiriva HandiHaler] 18 mcg INH DAILY 08/03/18 [History] Azelastine HCl [Azelastine] 1 drop EYEBOTH BID 03/17/19 [History] Cetirizine [ZyrTEC] 10 mg PO DAILY 03/17/19 [History] DULoxetine [Cymbalta] 60 mg PO DAILY 03/17/19 [History] Fluticasone/Vilanterol [Breo Ellipta 100-25 MCG Inhalation Kit] 1 puff INH DAILY 03/17/19 [History] Ranitidine [Zantac] 150 mg PO DAILY 03/17/19 [History] Past Medical History - Past Health History Medical/Surgical History: Denies Medical/Surgical History HEENT History: Reports: Impaired Vision Cardiovascular History: Reports: None Respiratory History: Reports: Asthma Gastrointestinal History: Reports: GERD, Other (See Below) Other Gastrointestinal History: Lactose intolerance Genitourinary History: Reports: None Musculoskeletal History: Reports: Other (See Below) Other Musculoskeletal History: Had a staph infection to left heal Neurological History: Reports: None Psychiatric History: Reports: ADHD, Anxiety, Depression Endocrine/Metabolic History: Reports: Other (See Below) Other Endocrine/Metabolic History: Patient states is "Pre-diabetic" Hematologic History: Reports: None Immunologic History: Reports: None Oncologic (Cancer) History: Reports: None Dermatologic History: Reports: None - Infectious Disease History Infectious Disease History: Reports: Chicken Pox - Past Surgical History Head Surgeries/Procedures: Reports: None HEENT Surgical History: Reports: LASIK Cardiovascular Surgical History: Reports: None Respiratory Surgical History: Reports: None GI Surgical History: Reports: Colonoscopy Male Surgical History: Reports: Vasectomy Musculoskeletal Surgical History: Reports: Shoulder Surgery, Other (See Below) Other Musculoskeletal Surgeries/Procedures:: left hand pointer finger reattached. Left calcaneal osteotomy Oncologic Surgical History: Reports: None Social & Family History - Family History Family Medical History: No Pertinent Family History - Tobacco Use Tobacco Use Status *Q: Never Tobacco User - Caffeine Use Caffeine Use: Reports: None - Recreational Drug Use Recreational Drug Use: No - Living Situation & Occupation Living situation: Reports: with Family Occupation: Employed ED ROS ENT - Review of Systems Review Of Systems: Comprehensive ROS is negative, except as noted in HPI. ED EXAM, ENT - Physical Exam Exam: See Below Exam Limited By: No Limitations General Appearance: Alert, Mild Distress Eye Exam: Bilateral Eye: EOMI Ears: Normal External Exam, Hearing Grossly Normal Nose: Normal Inspection Mouth/Throat: Dental Pain, Dental Tenderness (Left upper first molar), Gum Swelling (mild left upper) Head: Atraumatic, Normocephalic Neck: Normal Inspection Respiratory/Chest: No Respiratory Distress, Lungs Clear, Normal Breath Sounds Cardiovascular: Regular Rate, Rhythm Extremities: Normal Range of Motion Psychiatric: Normal Affect, Normal Mood Skin: Warm, Dry, Intact Course - Vital Signs Last Recorded V/S: Last Vital Signs Temp 98.7 F 07/18/20 18:41 Pulse 80 07/18/20 18:41 Resp 16 07/18/20 18:41 BP 149/97 H 07/18/20 18:41 Pulse Ox 100 07/18/20 18:41 - Orders/Labs/Meds Meds: Medications Discontinued Medications Generic Name Dose Route Start Last Admin Trade Name Tatum PRN Reason Stop Dose Admin Amoxicillin Confirm 07/18/20 18:56 07/18/20 19:03 Amoxil Administered 07/18/20 18:57 Not Given Dose 1,000 mg .ROUTE .STK-MED ONE Lidocaine HCl Confirm 07/18/20 18:56 07/18/20 19:03 Xylocaine 2% Viscous Administered 07/18/20 18:57 Not Given Dose 15 ml .ROUTE .STK-MED ONE Departure - Departure Time of Disposition: 18:56 Disposition: Home, Self-Care 01 Condition: Good Clinical Impression: Dental abscess - Discharge Information *PRESCRIPTION DRUG MONITORING PROGRAM REVIEWED*: No *COPY OF PRESCRIPTION DRUG MONITORING REPORT IN PATIENT ERIKA: No Instructions: Dental Abscess, [id number] Referrals: Twila Dempsey NP [Primary Care Provider] - Forms: ED Department Discharge Additional Instructions: viscous lidocaine thin layer to affected tooth every 2 hours as needed amoxicillin 500mg one three times daily for one week dental follow up as scheduled alternate tylenol 650mg and ibuprofen 6oomg every 4 hours as needed for discomfort room temperature foods and liquids avoid chewing on left side. Sepsis Event Note (ED) - Evaluation Sepsis Screening Result: No Definite Risk - Focused Exam Vital Signs: Vital Signs Temp Pulse Resp BP Pulse Ox 07/18/20 18:41 98.7 F 80 16 149/97 H 100
== END 2020-07-18 19:04 | disposition home or self-care (01) ==
LOC: DL.ED 18:31
DX: K04.7 Periapical abscess without sinus (principal); J45.909 Unspecified asthma, uncomplicated; K21.9 Gastro-esophageal reflux disease without esophagitis; Z91.09 Other allergy status, other than to drugs and biological substances; Z79.899 Other long term (current) drug therapy
CPT/HCPCS: 99282; A9270-GY

== ENCOUNTER 2020-08-23 13:38 | Emergency (ER) | payer BC, MEDICAID, MEDICARE ==
--- NOTE | 2020-08-23 14:18 | EDM.PDOC ---
ED HPI GENERAL MEDICAL PROBLEM - General Chief Complaint: Abdominal Pain Stated Complaint: ABDOMINAL PAIN Time Seen by Provider: 08/23/20 14:05 Source of Information: Reports: Patient History Limitations: Reports: No Limitations - History of Present Illness INITIAL COMMENTS - FREE TEXT/NARRATIVE: This 30 yo male patient reports to the ED with right sided abdominal pain that started yesterday. The patient reports his pain has been getting worse over the past 24 hours. The patient reports he did take stool softener and drank prune juice yesterday and now has loose stools. The patient reports he has a history of a kidney stone on the right side previously. The patient reports no additional abdominal surgeries. Onset: Unknown/Unsure Duration: Constant Location: Reports: Abdomen (right sided) Quality: Reports: Ache, Sharp Severity: Moderate Improves with: Reports: None Worsens with: Reports: None Context: Reports: Other Associated Symptoms: Reports: No Other Symptoms Treatments [employer]: Reports: Acetaminophen, NSAIDS Right Abdominal Pain Score (Numeric/FACES): 10 - Related Data Allergies Allergy/AdvReac Type Severity Reaction Status Date / Time environmental Allergy Hives Uncoded 07/18/20 18:34 Home Meds: Home Meds Albuterol Sulfate [Proair Hfa] 2 puff IH Q4HR PRN 08/03/18 [History] Omeprazole 20 mg PO DAILY 08/03/18 [History] Tiotropium [Spiriva HandiHaler] 18 mcg INH DAILY 08/03/18 [History] Azelastine HCl [Azelastine] 1 drop EYEBOTH BID 03/17/19 [History] DULoxetine [Cymbalta] 60 mg PO DAILY 03/17/19 [History] Fluticasone/Vilanterol [Breo Ellipta 100-25 MCG Inhalation Kit] 1 puff INH DAILY 03/17/19 [History] Methylphenidate HCl [Methylphenidate ER] 54 mg PO DAILY 08/23/20 [History] Prazosin HCl [Prazosin] 2 mg PO DAILY 08/23/20 [History] Past Medical History - Past Health History Medical/Surgical History: Denies Medical/Surgical History HEENT History: Reports: Impaired Vision Cardiovascular History: Reports: None Respiratory History: Reports: Asthma Gastrointestinal History: Reports: GERD, Other (See Below) Other Gastrointestinal History: Lactose intolerance Genitourinary History: Reports: None Musculoskeletal History: Reports: Other (See Below) Other Musculoskeletal History: Had a staph infection to left heal Neurological History: Reports: None Psychiatric History: Reports: ADHD, Anxiety, Depression Endocrine/Metabolic History: Reports: Other (See Below) Other Endocrine/Metabolic History: Patient states is "Pre-diabetic" Hematologic History: Reports: None Immunologic History: Reports: None Oncologic (Cancer) History: Reports: None Dermatologic History: Reports: None - Infectious Disease History Infectious Disease History: Reports: Chicken Pox - Past Surgical History Head Surgeries/Procedures: Reports: None HEENT Surgical History: Reports: LASIK Cardiovascular Surgical History: Reports: None Respiratory Surgical History: Reports: None GI Surgical History: Reports: Colonoscopy Male Surgical History: Reports: Vasectomy Musculoskeletal Surgical History: Reports: Shoulder Surgery, Other (See Below) Other Musculoskeletal Surgeries/Procedures:: left hand pointer finger reattached. Left calcaneal osteotomy Oncologic Surgical History: Reports: None Social & Family History - Family History Family Medical History: No Pertinent Family History - Caffeine Use Caffeine Use: Reports: None - Living Situation & Occupation Living situation: Reports: with Family Occupation: Employed ED ROS GENERAL - Review of Systems Review Of Systems: Comprehensive ROS is negative, except as noted in HPI. ED EXAM, GI/ABD - Physical Exam Exam: See Below Exam Limited By: No Limitations General Appearance: Alert, WD/WN, Moderate Distress Eyes: Bilateral: Normal Appearance, EOMI Ears: Normal External Exam, Normal Canal, Hearing Grossly Normal, Normal TMs Nose: Normal Inspection, Normal Mucosa, No Blood Throat/Mouth: Normal Inspection, Normal Lips, Normal Teeth, Normal Gums, Normal Oropharynx, Normal Voice, No Airway Compromise Head: Atraumatic, Normocephalic Neck: Normal Inspection, Supple, Non-Tender, Full Range of Motion Respiratory/Chest: No Respiratory Distress, Lungs Clear, Normal Breath Sounds, No Accessory Muscle Use, Chest Non-Tender Cardiovascular: Normal Peripheral Pulses, Regular Rate, Rhythm, No Edema, No Gallop, No JVD, No Murmur, No Rub GI/Abdominal Exam: Normal Bowel Sounds, Guarding (right sided), Rebound, Tender (Male) Exam: Deferred Rectal (Males) Exam: Deferred Back Exam: Normal Inspection, Full Range of Motion, NT Extremities: Normal Inspection, Normal Range of Motion, Non-Tender, Normal Capillary Refill, No Pedal Edema Neurological: Alert, Oriented, CN II-XII Intact, Normal Cognition, Normal Gait, Normal Reflexes, No Motor/Sensory Deficits Psychiatric: Normal Affect, Normal Mood Skin Exam: Warm, Dry, Intact, Normal Color, No Rash Lymphatic: No Adenopathy Course - Vital Signs Last Recorded V/S: Last Vital Signs Temp 37.2 C 08/23/20 13:59 Pulse 98 08/23/20 13:59 Resp 14 08/23/20 13:59 BP 149/92 H 08/23/20 13:59 Pulse Ox 99 08/23/20 13:59 - Orders/Labs/Meds Orders: Active Orders 24 hr Category Date Time Status CULTURE BLOOD [BC] Stat Lab 08/23/20 14:09 Received Labs: Laboratory Tests 08/23/20 08/23/20 08/23/20 Range/Units 14:05 14:07 14:07 WBC (5.0-10.0) 10^3/uL RBC (4.6-6.2) 10^6/uL Hgb (14.0-18.0) g/dL Hct (40.0-54.0) % MCV (80-100) fL MCH (27.0-34.0) pg MCHC (33.0-35.0) g/dL Plt Count (150-450) 10^3/uL Neut % (Auto) (42.2-75.2) % Lymph % (Auto) (20.5-50.1) % [place] % (Auto) (2-8) % Eos % (Auto) (1.0-3.0) % Baso % (Auto) (0.0-1.0) % Sodium 139 (136-145) mmol/L Potassium 4.5 (3.5-5.1) mmol/L Chloride 100 (98-107) mmol/L Carbon Dioxide 28 (21-32) mmol/L Anion Gap 15.5 H (7-13) mEq/L BUN 17 (7-18) mg/dL Creatinine 0.99 (0.70-1.30) mg/dL Est Cr Clr Drug Dosing 111.63 mL/min Estimated GFR (MDRD) > 60 BUN/Creatinine Ratio 17.2 (No establ ref range) Glucose 101 H (74-99) mg/dL Lactic Acid 0.9 (0.4-2.0) mmol/L Calcium 9.2 (8.5-10.1) mg/dL Total Bilirubin 0.4 (0.2-1.0) mg/dL AST 24 (15-37) U/L ALT 44 (16-63) U/L Alkaline Phosphatase 79 (46-116) U/L Total Protein 8.3 H (6.4-8.2) g/dL Albumin 4.7 (3.4-5.0) g/dL Globulin 3.6 Albumin/Globulin Ratio 1.3 Amylase (25-115) U/L Lipase (73-393) U/L Urine Color Yellow (YELLOW) Urine Appearance Clear (CLEAR) Urine pH 5.5 (5.0-9.0) Ur Specific [place] >= 1.030 (1.005-1.030) Urine Protein Negative (NEGATIVE) Urine Glucose (UA) Negative (NEGATIVE) Urine Ketones Negative (NEGATIVE) Urine Occult Blood Negative (NEGATIVE) Urine Nitrite Negative (NEGATIVE) Urine Bilirubin Negative (NEGATIVE) Urine Urobilinogen 0.2 (0.2-1.0) mg/dL Ur Leukocyte Esterase Negative (NEGATIVE) Influenza Type A RNA (NEGATIVE) Influenza Type B RNA (NEGATIVE) SARS-CoV-2 RNA (MONET) (NEGATIVE) 08/23/20 08/23/20 08/23/20 Range/Units 14:07 14:09 14:09 WBC 6.1 (5.0-10.0) 10^3/uL RBC 5.12 (4.6-6.2) 10^6/uL Hgb 14.7 (14.0-18.0) g/dL Hct 43.3 (40.0-54.0) % MCV 84.6 (80-100) fL MCH 28.7 (27.0-34.0) pg MCHC 33.9 (33.0-35.0) g/dL Plt Count 213 (150-450) 10^3/uL Neut % (Auto) 56.1 (42.2-75.2) % Lymph % (Auto) 34.0 (20.5-50.1) % [place] % (Auto) 7.9 (2-8) % Eos % (Auto) 1.5 (1.0-3.0) % Baso % (Auto) 0.5 (0.0-1.0) % Sodium (136-145) mmol/L Potassium (3.5-5.1) mmol/L Chloride (98-107) mmol/L Carbon Dioxide (21-32) mmol/L Anion Gap (7-13) mEq/L BUN (7-18) mg/dL Creatinine (0.70-1.30) mg/dL Est Cr Clr Drug Dosing mL/min Estimated GFR (MDRD) BUN/Creatinine Ratio (No establ ref range) Glucose (74-99) mg/dL Lactic Acid (0.4-2.0) mmol/L Calcium (8.5-10.1) mg/dL Total Bilirubin (0.2-1.0) mg/dL AST (15-37) U/L ALT (16-63) U/L Alkaline Phosphatase (46-116) U/L Total Protein (6.4-8.2) g/dL Albumin (3.4-5.0) g/dL Globulin Albumin/Globulin Ratio Amylase 45 (25-115) U/L Lipase 99 (73-393) U/L Urine Color (YELLOW) Urine Appearance (CLEAR) Urine pH (5.0-9.0) Ur Specific [place] (1.005-1.030) Urine Protein (NEGATIVE) Urine Glucose (UA) (NEGATIVE) Urine Ketones (NEGATIVE) Urine Occult Blood (NEGATIVE) Urine Nitrite (NEGATIVE) Urine Bilirubin (NEGATIVE) Urine Urobilinogen (0.2-1.0) mg/dL Ur Leukocyte Esterase (NEGATIVE) Influenza Type A RNA Negative (NEGATIVE) Influenza Type B RNA Negative (NEGATIVE) SARS-CoV-2 RNA (MONET) Negative (NEGATIVE) Meds: Medications Discontinued Medications Generic Name Dose Route Start Last Admin Trade Name Freq PRN Reason Stop Dose Admin Hydromorphone HCl 0.5 mg 08/23/20 14:27 08/23/20 14:39 Dilaudid IVPUSH 08/23/20 14:28 0.5 mg ONETIME ONE Administration Iopamidol 100 ml 08/23/20 14:49 08/23/20 15:02 Isovue-300 (61%) IVPUSH 08/23/20 14:50 100 ml ONETIME ONE Administration Departure - Departure Time of Disposition: 16:48 Disposition: Home, Self-Care 01 Condition: Fair Clinical Impression: Abdominal pain Qualifiers: Abdominal location: right lower quadrant Qualified Code(s): R10.31 - Right lower quadrant pain - Discharge Information *PRESCRIPTION DRUG MONITORING PROGRAM REVIEWED*: Not Applicable *COPY OF PRESCRIPTION DRUG MONITORING REPORT IN PATIENT ERIKA: Not Applicable Instructions: Abdominal Pain, Adult, [id number] Forms: ED Department Discharge Care Plan Goals: The patient was advised of the examination, lab and CT results during the visit. The patient was given IV pain medication while in the ED. The patient was discharged with a script for Gautam () #6 to take 1 by mouth every 6 hours as needed for pain. The patient was encouraged to stick to a low fat diet and follow-up with his primary care facility. If the patient has any additional symptoms or concerns, the patient should either return to the emergency department or visit his primary care facility. Sepsis Event Note (ED) - Evaluation Sepsis Screening Result: No Definite Risk - Focused Exam Vital Signs: Vital Signs Temp Pulse Resp BP Pulse Ox 08/23/20 13:59 37.2 C 98 14 149/92 H 99 - My Orders Last 24 Hours: My Active Orders 08/23/20 14:09 CULTURE BLOOD [BC] Stat - Assessment/Plan Last 24 Hours: My Active Orders 08/23/20 14:09 CULTURE BLOOD [BC] Stat
[2020-08-23] MEDS ORDERED: HYDROmorphone 0.5 MG/0.5 ML Syringe IVPUSH ONE (14:27)
[2020-08-23 14:38] LABS: ANION GAP 15.5 mEq/L (7-13); CHLORIDE,CL 100 mmol/L (98-107); SODIUM,NA 139 mmol/L (136-145)
[2020-08-23] MEDS ORDERED: Iopamidol 612 MG/ML 100 ML Bottle IVPUSH ONE (14:49)
[2020-08-23 15:08] LABS: CORONAVIRUS COVID-19 NAA NEGATIVE (NEGATIVE)
--- NOTE | 2020-08-23 15:28 | CT ---
EXAMINATION: Abdomen Pelvis w Cont SEX: Male AGE: 30 years CLINICAL HISTORY: 30-year-old 217 pound diabetic male with right-sided lower abdominal pain. Normal WBC. No known surgeries. Note: Patient reported on [address] scan abdomen have "right renal cyst; right renal calculus without hydronephrosis; no evidence of acute pathology". Scan technique: Volume acquisition of data from the abdomen and pelvis obtained on an emergency basis without oral contrast but during the intravenous administration 100 cc nonionic Isovue contrast 3 cc/s via injector while patient was lying supine on the Siemens multislice scanner [place], [place]. All data archived in the PACS system for storage, reformatting axial/sagittal/coronal planes and study. Interpretation: 1. Solitary tiny mid pole calyceal calcification right kidney and solitary 19 mm diameter upper pole cortical cyst right kidney as reported on previous CT exam August 2018. Tiny 5 mm lower pole cortical cyst contralateral left kidney. No other evidence of cortical mass or nephrolithiasis either kidney. No pyelocaliectasis (obstructive uropathy). Normal bladder. 2. Normal appendix lying laterally in the right paracolic gutter. No pelvic or abdominal mass lesion. No mesenteric or retroperitoneal lymphadenopathy. No ventral wall hernia, mechanical bowel obstruction, inflammatory "dirty" peritoneal fat, ascites or free intraperitoneal air. 3. Gallbladder, liver, stomach, spleen, pancreas and adrenal glands unremarkable. 4. Normal caliber aortoiliac vessels. Normal lower thoracic, entire lumbar spine and sacrum. 5. Lung bases clear. Normal cardiac silhouette. No pericardial or pleural effusions. CONCLUSION: Bilateral benign renal cysts. Tiny calculus right kidney without associated evidence of obstruction. Otherwise Negative CT examination abdomen/pelvis. No sign of appendicitis, bowel obstruction, intra-abdominal malignancy or acute peritonitis.
== END 2020-08-23 17:24 | disposition home or self-care (01) ==
LOC: DL.ED 13:38
DX: R10.31 Right lower quadrant pain (principal); J45.909 Unspecified asthma, uncomplicated; K21.9 Gastro-esophageal reflux disease without esophagitis; Z79.899 Other long term (current) drug therapy; Z91.048 Other nonmedicinal substance allergy status; Z20.822 Contact with and (suspected) exposure to COVID-19
CPT/HCPCS: 0240U; 36415; 74177; 80053; 81003; 82150; 83605; 83690; 85025; 87040; 96374; 99283; 99284-25; J1170; Q9967

== ENCOUNTER 2021-01-08 12:36 | Emergency (ER) | payer BC ==
[2021-01-08] MEDS ORDERED: Lidocaine 1% 30 ML SDV INJECT ONE (13:07)
--- NOTE | 2021-01-08 13:39 | EDM.PDOC ---
ED HPI GENERAL MEDICAL PROBLEM - General Chief Complaint: Gastrointestinal Problem Stated Complaint: KADIEMROID [id number] Time Seen by Provider: 01/08/21 12:50 Source of Information: Reports: Patient, Old Records, RN, RN Notes Reviewed History Limitations: Reports: No Limitations - History of Present Illness INITIAL COMMENTS - FREE TEXT/NARRATIVE: Parvin is a 30 y/o male who presents to the ED via personal vehicle with complaints of rectal pain. The patient reports his symptoms started this morning when he attempted to have a bowel movement; he noted pain and a lump. He denies rectal bleeding. He denies history of hemorrhoids. He has taken no medications for his symptoms. His last bowel movement was last night and was soft; he denies noting pain at this time. - Related Data Allergies Allergy/AdvReac Type Severity Reaction Status Date / Time environmental Allergy Hives Uncoded 01/09/21 10:47 Home Meds: Home Meds Albuterol Sulfate [Proair Hfa] 2 puff IH Q4HR PRN 08/03/18 [History] Omeprazole 20 mg PO DAILY 08/03/18 [History] Tiotropium [Spiriva HandiHaler] 18 mcg INH DAILY 08/03/18 [History] Azelastine HCl [Azelastine] 1 drop EYEBOTH BID 03/17/19 [History] DULoxetine [Cymbalta] 90 mg PO DAILY 03/17/19 [History] Fluticasone/Vilanterol [Breo Ellipta 100-25 MCG Inhalation Kit] 1 puff INH DAILY 03/17/19 [History] Methylphenidate HCl [Methylphenidate ER] 54 mg PO DAILY 08/23/20 [History] Prazosin HCl [Prazosin] 2 mg PO DAILY 08/23/20 [History] Semaglutide [Ozempic] 0.5 mg SQ WEEKLY 01/09/21 [History] Past Medical History - Past Health History Medical/Surgical History: Denies Medical/Surgical History HEENT History: Reports: Impaired Vision Cardiovascular History: Reports: None Respiratory History: Reports: Asthma Gastrointestinal History: Reports: GERD, Other (See Below) Other Gastrointestinal History: Lactose intolerance Genitourinary History: Reports: None Musculoskeletal History: Reports: Other (See Below) Other Musculoskeletal History: Had a staph infection to left heal Neurological History: Reports: None Psychiatric History: Reports: ADHD, Anxiety, Depression Endocrine/Metabolic History: Reports: Other (See Below) Other Endocrine/Metabolic History: Patient states is "Pre-diabetic" Hematologic History: Reports: None Immunologic History: Reports: None Oncologic (Cancer) History: Reports: None Dermatologic History: Reports: None - Infectious Disease History Infectious Disease History: Reports: Chicken Pox - Past Surgical History Head Surgeries/Procedures: Reports: None HEENT Surgical History: Reports: LASIK Cardiovascular Surgical History: Reports: None Respiratory Surgical History: Reports: None GI Surgical History: Reports: Colonoscopy Male Surgical History: Reports: Vasectomy Musculoskeletal Surgical History: Reports: Shoulder Surgery, Other (See Below) Other Musculoskeletal Surgeries/Procedures:: left hand pointer finger reattached. Left calcaneal osteotomy Oncologic Surgical History: Reports: None Social & Family History - Family History Family Medical History: No Pertinent Family History - Tobacco Use Tobacco Use Status *Q: Never Tobacco User - Caffeine Use Caffeine Use: Reports: None - Recreational Drug Use Recreational Drug Use: No - Living Situation & Occupation Living situation: Reports: with Family Occupation: Employed ED ROS GENERAL - Review of Systems Review Of Systems: Comprehensive ROS is negative, except as noted in HPI. ED EXAM, GENERAL - Physical Exam Exam: See Below Exam Limited By: No Limitations General Appearance: Alert, No Apparent Distress Eye Exam: Bilateral Eye: EOMI, Normal Inspection, PERRL (3mm) Ears: Normal External Exam, Hearing Grossly Normal Nose: Normal Inspection, Normal Mucosa, No Blood Throat/Mouth: Normal Inspection, Normal Lips, Normal Teeth, Normal Gums, Normal Oropharynx, Normal Voice, No Airway Compromise Head: Atraumatic, Normocephalic Neck: Normal Inspection, Supple, Non-Tender, Full Range of Motion Respiratory/Chest: No Respiratory Distress, Lungs Clear, Normal Breath Sounds, No Accessory Muscle Use, Chest Non-Tender Cardiovascular: Normal Peripheral Pulses Peripheral Pulses: 2+: Radial (R), Femoral (L) GI/Abdominal: Normal Bowel Sounds, Soft, Non-Tender, No Organomegaly, No Distention, No Abnormal Bruit, No Mass, Pelvis Stable (Male) Exam: No Hernia, Normal Inspection. No: Circumcised, Penile Lesions Rectal (Males) Exam: Normal Rectal Tone, Hemorrhoids, Tenderness. No: Bloody Stool, Perirectal Abscess, Rectal Fissure Back Exam: Normal Inspection, Full Range of Motion. No: CVA Tenderness (L), CVA Tenderness (R) Extremities: Normal Inspection, Normal Range of Motion, Non-Tender, Normal Capillary Refill, No Pedal Edema Neurological: Alert, Oriented, CN II-XII Intact, Normal Cognition, Normal Gait, Normal Reflexes, No Motor/Sensory Deficits Psychiatric: Normal Affect, Normal Mood Skin Exam: Warm, Dry, Intact, Normal Color, No Rash Course - Vital Signs Last Recorded V/S: Last Vital Signs Temp 96.7 F L 01/08/21 12:47 Pulse 97 01/08/21 12:47 Resp 16 01/08/21 12:47 BP 126/83 01/08/21 12:47 Pulse Ox 99 01/08/21 12:47 - Orders/Labs/Meds Meds: Medications Discontinued Medications Generic Name Dose Route Start Last Admin Trade Name Tatum PRN Reason Stop Dose Admin Lidocaine HCl 30 ml 01/08/21 13:07 01/08/21 13:40 Lidocaine 1% 30 Ml Sdv INJECT 01/08/21 13:08 30 ml ONETIME ONE Administration - Re-Assessments/Exams Free Text/Narrative Re-Assessment/Exam: 01/08/21 Lidocaine injected into hemorrhoid for alleviation of pain; no evidence of thrombosis appreciated. Findings of examination reviewed with patient. Patient instructed to follow up with primary care provider to schedule referral with general surgery. Discussed supportive cares for hemorrhoids. Red flag signs and symptoms which would warrant reevaluation reviewed. Patient verbalized understanding and agreement with the plan of care. Departure - Departure Time of Disposition: 13:32 Disposition: Home, Self-Care 01 Condition: Good Clinical Impression: Acute hemorrhoid - Discharge Information *PRESCRIPTION DRUG MONITORING PROGRAM REVIEWED*: Not Applicable *COPY OF PRESCRIPTION DRUG MONITORING REPORT IN PATIENT ERIKA: Not Applicable Instructions: Hemorrhoids, [id number] Referrals: Twila Dempsey NP [Primary Care Provider] - Forms: ED Department Discharge Additional Instructions: 1.) You may apply Dermoplast, Tucks pads, Preparation H, or similar products to affected area for pain relief. 2.) You may use a stool softener to ease bowel movements while experiencing discomfort. 3.) Follow up with primary care provider, or return to the emergency department, with worsening symptoms. Sepsis Event Note (ED) - Evaluation Sepsis Screening Result: No Definite Risk
== END 2021-01-08 13:46 | disposition home or self-care (01) ==
LOC: DL.ED 12:36
DX: K64.9 Unspecified hemorrhoids (principal); J45.909 Unspecified asthma, uncomplicated; K21.9 Gastro-esophageal reflux disease without esophagitis; Z91.048 Other nonmedicinal substance allergy status; Z79.899 Other long term (current) drug therapy
CPT/HCPCS: 99282

== ENCOUNTER 2021-01-09 10:35 | Emergency (ER) | payer BC ==
[2021-01-09] MEDS ORDERED: Lidocaine 2% Jelly 10 ML Urojet MUCMEM ONE (10:58)
--- NOTE | 2021-01-09 10:58 | EDM.PDOC ---
ED HPI GENERAL MEDICAL PROBLEM - General Chief Complaint: Gastrointestinal Problem Stated Complaint: HEMMROID MORE PAIN Time Seen by Provider: 01/09/21 10:56 Source of Information: Reports: Patient, RN, RN Notes Reviewed History Limitations: Reports: No Limitations - History of Present Illness INITIAL COMMENTS - FREE TEXT/NARRATIVE: Parvin is a 30 y/o male who presents to the ED via personal vehicle with complaints of rectal pain. The patient was evaluated at this facility yesterday for similar complaints and was diagnosed with a non-bleeding external hemorrhoid. The patient reports he has been applying Dermaplast and Tucks pads to his rectum which offer him moderate relief. He notes an increase in rectal pain today following lifting a 50lb pack of shingles. Additionally, he notes he has been able to pass gas but has not experienced a bowel movement in two days. He denies fever, shaking chills, nausea, vomiting, dysuria, hematuria, or abdominal pain. The patient reports he called for an appointment with his primary care provider this morning but is unable to get an appointment for 10 days. Buttock Pain Score (Numeric/FACES): 8 - Related Data Allergies Allergy/AdvReac Type Severity Reaction Status Date / Time environmental Allergy Hives Uncoded 01/09/21 10:47 Home Meds: Home Meds Albuterol Sulfate [Proair Hfa] 2 puff IH Q4HR PRN 08/03/18 [History] Omeprazole 20 mg PO DAILY 08/03/18 [History] Tiotropium [Spiriva HandiHaler] 18 mcg INH DAILY 08/03/18 [History] Azelastine HCl [Azelastine] 1 drop EYEBOTH BID 03/17/19 [History] DULoxetine [Cymbalta] 90 mg PO DAILY 03/17/19 [History] Fluticasone/Vilanterol [Breo Ellipta 100-25 MCG Inhalation Kit] 1 puff INH DAILY 03/17/19 [History] Methylphenidate HCl [Methylphenidate ER] 54 mg PO DAILY 08/23/20 [History] Prazosin HCl [Prazosin] 2 mg PO DAILY 08/23/20 [History] Semaglutide [Ozempic] 0.5 mg SQ WEEKLY 01/09/21 [History] Past Medical History - Past Health History Medical/Surgical History: Denies Medical/Surgical History HEENT History: Reports: Impaired Vision Cardiovascular History: Reports: None Respiratory History: Reports: Asthma Gastrointestinal History: Reports: GERD, Other (See Below) Other Gastrointestinal History: Lactose intolerance Genitourinary History: Reports: None Musculoskeletal History: Reports: Other (See Below) Other Musculoskeletal History: Had a staph infection to left heal Neurological History: Reports: None Psychiatric History: Reports: ADHD, Anxiety, Depression Endocrine/Metabolic History: Reports: Other (See Below) Other Endocrine/Metabolic History: Patient states is "Pre-diabetic" Hematologic History: Reports: None Immunologic History: Reports: None Oncologic (Cancer) History: Reports: None Dermatologic History: Reports: None - Infectious Disease History Infectious Disease History: Reports: Chicken Pox - Past Surgical History Head Surgeries/Procedures: Reports: None HEENT Surgical History: Reports: LASIK Cardiovascular Surgical History: Reports: None Respiratory Surgical History: Reports: None GI Surgical History: Reports: Colonoscopy Male Surgical History: Reports: Vasectomy Musculoskeletal Surgical History: Reports: Shoulder Surgery, Other (See Below) Other Musculoskeletal Surgeries/Procedures:: left hand pointer finger reattached. Left calcaneal osteotomy Oncologic Surgical History: Reports: None Social & Family History - Family History Family Medical History: No Pertinent Family History - Tobacco Use Tobacco Use Status *Q: Never Tobacco User Second Hand Smoke Exposure: No - Caffeine Use Caffeine Use: Reports: None - Recreational Drug Use Recreational Drug Use: No - Living Situation & Occupation Living situation: Reports: with Family Occupation: Employed ED ROS GENERAL - Review of Systems Review Of Systems: Comprehensive ROS is negative, except as noted in HPI. ED EXAM, GENERAL - Physical Exam Exam: See Below Exam Limited By: No Limitations General Appearance: Alert, No Apparent Distress Eye Exam: Bilateral Eye: EOMI, Normal Inspection, PERRL (3mm) Ears: Normal External Exam, Hearing Grossly Normal Nose: Normal Inspection, Normal Mucosa, No Blood Throat/Mouth: Normal Inspection, Normal Lips, Normal Teeth, Normal Gums, Normal Oropharynx, Normal Voice, No Airway Compromise Head: Atraumatic, Normocephalic Neck: Normal Inspection, Supple, Non-Tender, Full Range of Motion Respiratory/Chest: No Respiratory Distress, Lungs Clear, Normal Breath Sounds, No Accessory Muscle Use, Chest Non-Tender Cardiovascular: Normal Peripheral Pulses, Regular Rate, Rhythm, No Edema, No Gallop, No JVD, No Murmur, No Rub GI/Abdominal: Normal Bowel Sounds, Soft, Non-Tender, No Organomegaly, No Distention, No Abnormal Bruit, No Mass (Male) Exam: No Hernia, Normal Inspection. No: Hernia, Penile Lesions Rectal (Males) Exam: Hemorrhoids, Tenderness. No: Bloody Stool, Decreased Rectal Tone, Fecal Impaction, Perirectal Abscess, Rectal Fissure Back Exam: Normal Inspection, Full Range of Motion Extremities: Normal Inspection, Normal Range of Motion, Non-Tender, Normal Capillary Refill, No Pedal Edema Neurological: Alert, Oriented, CN II-XII Intact, Normal Cognition, Normal Gait, Normal Reflexes, No Motor/Sensory Deficits Psychiatric: Normal Affect, Normal Mood Skin Exam: Warm, Dry, Intact, Normal Color, No Rash. No: Cyanosis, Jaundice, Mottled, Pallor Course - Vital Signs Last Recorded V/S: Last Vital Signs Temp 96 F L 01/09/21 10:42 Pulse 101 H 01/09/21 10:42 Resp 16 01/09/21 10:42 BP 134/82 01/09/21 11:03 Pulse Ox 100 01/09/21 10:42 - Orders/Labs/Meds Meds: Medications Discontinued Medications Generic Name Dose Route Start Last Admin Trade Name Freq PRN Reason Stop Dose Admin Lidocaine HCl 10 ml 01/09/21 10:58 01/09/21 11:01 Lidocaine 2% Jelly 10 Ml Urojet MUCMEM 01/09/21 10:59 10 ml ONETIME ONE Administration - Re-Assessments/Exams Free Text/Narrative Re-Assessment/Exam: 01/09/21 Lidocaine urojet applied to hemorrhoid. Coke Burner discussed case with Rocael Doll to speak with general surgery. Dr. Story, general surgeon at [facility], is currently in OR, she will call back when out of her current case. 01/09/21 14:[address]ke [address] Story who states patient can be evaluated in the General Surgical clinic. Coke Burner spoke with patient regarding conversation with Dr. Story. Reiterated supportive cares. Patient verbalized understanding and agreement with the plan of care. Departure - Departure Time of Disposition: 11:21 Disposition: Home, Self-Care 01 Condition: Good Clinical Impression: External hemorrhoid - Discharge Information *PRESCRIPTION DRUG MONITORING PROGRAM REVIEWED*: Not Applicable *COPY OF PRESCRIPTION DRUG MONITORING REPORT IN PATIENT ERIKA: Not Applicable Instructions: Hemorrhoids, [id number] Referrals: Twila Dempsey NP [Primary Care Provider] - Forms: ED Department Discharge Additional Instructions: 1.) Continue with Dermaplast, Tucks Pads, and Preparation H 2.) No heavy lifting. 3.) No martial arts training. 4.) Take a stool softener daily to keep stool loose. 5.) Drink plenty of water to stay hydrated and keep stools loose. 6.) You will receive a call today with plan for general surgery regarding hemorrhoid. Sepsis Event Note (ED) - Evaluation Sepsis Screening Result: No Definite Risk - Focused Exam Vital Signs: Vital Signs Temp Pulse Resp BP Pulse Ox 01/09/21 11:03 134/82 01/09/21 10:42 96 F L 101 H 16 153/93 H 100
== END 2021-01-09 11:28 | disposition home or self-care (01) ==
LOC: DL.ED 10:35
DX: K64.4 Residual hemorrhoidal skin tags (principal); K21.9 Gastro-esophageal reflux disease without esophagitis; Z79.899 Other long term (current) drug therapy; Z91.09 Other allergy status, other than to drugs and biological substances
CPT/HCPCS: 99282

== ENCOUNTER 2021-03-10 20:34 | Emergency (ER) | payer BC ==
--- NOTE | 2021-03-10 22:23 | CR ---
PROCEDURE INFORMATION: Exam: XR Left Finger(s) Exam date and time: 03/10/2021 10:05 PM Age: 30 years old Clinical indication: Other: Pain; Additional info: Smashed in door, pain, swelling TECHNIQUE: Imaging protocol: XR Left fingers. Views: Minimum 2 views. COMPARISON: No relevant prior studies available. FINDINGS: Bones/joints: No fracture. No malalignment. Soft tissues: Normal. IMPRESSION: No acute osseous abnormalities
== END 2021-03-10 22:22 | disposition left against medical advice (07) ==
LOC: DL.ED 20:34
DX: S60.019A Contusion of unspecified thumb without damage to nail, initial encounter (principal); Z53.21 Procedure and treatment not carried out due to patient leaving prior to being seen by health care provider
CPT/HCPCS: 73140-FA

== ENCOUNTER 2022-09-12 12:18 | Emergency (ER) | payer BC, OTHER ==
[2022-09-12 13:38] LABS: ANION GAP 14.4 mEq/L (7-13); CHLORIDE,CL 103 mmol/L (98-107); SODIUM,NA 140 mmol/L (136-145)
[2022-09-12 13:54] LABS: ESTIMATED GFR 94 mL/min (>=60)
[2022-09-12] MEDS ORDERED: cefTRIAXone 2 GM Vial IVPUSH ONE (15:24)
[2022-09-12] MEDS ORDERED: methylPREDNISolone Sodium Succinate 125 MG/2 ML SDV IVPUSH ONE (15:24)
== END 2022-09-12 16:25 | disposition home or self-care (01) ==
LOC: DL.ED 12:18
DX: J45.41 Moderate persistent asthma with (acute) exacerbation (principal); K21.9 Gastro-esophageal reflux disease without esophagitis; Z91.09 Other allergy status, other than to drugs and biological substances; Z79.899 Other long term (current) drug therapy; Z77.22 Contact with and (suspected) exposure to environmental tobacco smoke (acute) (chronic)
CPT/HCPCS: 36415; 71046; 80053; 83605; 84484; 85025; 93005; 93010; 96374; 96375; 99284; 99285-25; J0696; J2930

== ENCOUNTER 2023-11-09 06:46 | Emergency (ER) | payer BC ==
[2023-11-09] MEDS: Bupivacaine 0.5% 30 ML SDV INFILT ONE (07:37)
[2023-11-09] MEDS: Lidocaine 5% Oint 35.44 GM Tube TOP ONE (07:50)
== END 2023-11-09 07:56 | disposition home or self-care (01) ==
LOC: DL.ED 06:46
DX: M25.522 Pain in left elbow (principal); M77.9 Enthesopathy, unspecified; J45.909 Unspecified asthma, uncomplicated; K21.9 Gastro-esophageal reflux disease without esophagitis; Z91.048 Other nonmedicinal substance allergy status; Z88.8 Allergy status to other drugs, medicaments and biological substances; Z79.899 Other long term (current) drug therapy
CPT/HCPCS: 20552; 99283; 99283-25; A9270-GY; J0665